=== PATIENT | male | born 1945 | race Caucasian/White ===

== ENCOUNTER 2017-08-25 18:40 | Inpatient (IN) | payer OTHER ==
[~2017-08-25] VITALS: Ht 182.9 cm; Wt 94.9 kg
[~2017-08-25 18:40] MED LIST: AMLO10TA3 PO; APR25 PO; ASPI81TA28 PO; ATV/1 PO; BRIM0.2S18 OPB; BUME1TAB PO; CARV25TA2 PO; CLC100X PO; CYAN1TAB4 PO; ETAN50IN2 SQ; FAMO40TA6 PO; FLV1 PO; GABA-1220 PO; LATA0.5S OPB; LEVO125T72 PO; METH25IN13 SQ; MORP60TA6 PO; MULTTAB PO; ONDA4TAB46 PO; PRS5 PO; [UNRECOGNIZED DRUG - CODE] PO; [UNRECOGNIZED DRUG - CODE] TD
[2017-08-25] MEDS ORDERED: SODIUM CHLORIDE 0.9% 500ML 500 ML IV STA (18:59)
--- NOTE | 2017-08-25 19:14 | EMERGENCY ROOM VISIT NOTE ---
History Report prepared by Jayson: Radha Lopez Under the Supervision of: Dr. Erwin Quiroz M.D. First contact with patient: 18:50 Chief Complaint: CONFUSION Stated Complaint: WEAKNESS, CONFUSION History of Present Illness The patient is a 72 year old white male with a past medical history of dementia who presents to the ED with a cc of worsening confusion beginning yesterday. Positive left sided weakness, confusion, decreased appetite. Negative headache, chest pain, shortness of breath, urinary symptoms. Per nursing, the patient's stated the patient has had decreased urinary output over the past couple days. The patient's is on her way to the ED. History limited secondary to dementia. Source of History: patient History Limited By: dementia Onset: two days Position: other (generalized) Associated Symptoms: + weakness, No headache, No chest pain, No SOB, No urinary symptoms Review of Systems ROS limited secondary to dementia. Past Medical & Surgical Medical Problems: (1) CVA (cerebral vascular accident) Surgical Problems: (1) H/O aortic valve replacement Family History No pertinent family history Social History Smoking Status: Never Smoker Marital Status: Housing Status: lives with family Current/Historical Medications Scheduled Amlodipine (Norvasc), 10 MG PO DAILY Artificial Tear Solution (Artificial Tears), 1 DROPS OP Q12 Calcipotriene (Calcipotriene), 1 APPLN TOP PRN Calcitriol (Rocaltrol Cap), 0.25 MCG PO MWF Calcium Carbonate-Vitamin D (Calcium 500 + D), 1 TAB PO BID Cholecalciferol (Vitamin D 1000 Unit), 2,000 INTER.UNIT PO DAILY Clobetasol Propionate (Clobetasol Propionate), 1 APPLN TOP PRN UD Donepezil Hydrochloride (Donepezil Hcl), 5 MG PO DAILY Famotidine (Pepcid), 40 MG PO BID Fluoxetine (Prozac), 20 MG PO DAILY Folic Acid (Folic Acid), 1 MG PO DAILY Hydralazine Hcl (Apresoline), 30 MG PO Q8 Levothyroxine Sodium (Levothyroxine Sodium), 1 TAB PO DAILY Lorazepam (Ativan), 0.5 MG PO HS Metformin Hcl (Glucophage), 500 MG PO DAILY Methotrexate Sodium (Methotrexate), 6 TABS PO WK Morphine Sulfate (Morphine Sulfate Cr), 60 MG PO HS Morphine Sulfate (Morphine Sulfate), 30 MG PO QAM Multivitamins/Minerals (Mvi With Minerals), 1 TAB PO DAILY Tamsulosin Hcl (Flomax), 0.8 MG PO HS Trazodone Hcl (Desyrel), 150 MG PO HS Venlafaxine Hcl (Effexor), 2 TABS QAM Venlafaxine Hcl (Effexor), 3 TABS PO QPM Scheduled PRN Fluocinonide (Fluocinonide), 1 APPLN TOP BID PRN for PSORIASIS Ipratropium [place] (Nasal) (Ipratropium [place]), 1 SPRAY JOHN BID PRN for Nasal Congestion Lidocaine (Anorectal) (Lidocaine 5%), 1 APPLN TOP Q6 PRN for Pain Allergies Coded Allergies: No Known Allergies (Unverified , 03/20/14) Physical Exam Vital Signs Date Time Temp Pulse Resp B/P (MAP) Pulse Ox O2 Delivery O2 Flow Rate FiO2 08/25/17 22:30 66 20 156/93 94 Room Air 08/25/17 21:43 Room Air 08/25/17 20:08 66 08/25/17 20:04 70 16 160/95 94 Room Air 08/25/17 19:05 Room Air 08/25/17 18:49 37.3 78 14 148/92 92 Room Air Physical Exam GENERAL: Awake, alert, well-appearing, NAD HENT: Normocephalic, atraumatic. EYES: Purulent drainage from left eye, b/l conjunctivas. Sclera non-icteric. PERRL. No anisocoria. NECK: Supple. No nuchal rigidity. FROM. RESPIRATORY: CTAB, no rhonchi, wheezing, crackles CARDIAC: RRR, no MRG ABDOMEN: Soft, NTND, BS+ MSK: No chest wall TTP, no LE edema NEURO: Poor finger to nose of left upper extremity, left upper extremity drift, 3/5 strength of left upper extremity. Right upper and both lower extremities are 5/5 in strength. GCS 15, CN 2-12 intact, moves all 4s on command SKIN: No rash or jaundice noted. Medical Decision & Procedures ER Provider Diagnostic Interpretation: Radiology results as stated below per my review and radiologist interpretation: CHEST ONE VIEW PORTABLE CLINICAL HISTORY: EVALUATE WEAKNESS mental status change COMPARISON STUDY: 03/20/2014 FINDINGS: Mild stable cardia megaly. Diaphragms smooth. IMPRESSION: No acute process. Chronic change. The above report was generated using voice recognition software. It may contain grammatical, syntax or spelling errors. Electronically signed by: Kris Yee M.D. HEAD WITHOUT CONTRAST (CT) CT DOSE: 712.55 mGy.cm HISTORY: Mental status change EVALUATE WEAKNESS TECHNIQUE: Multiaxial CT images of the head were performed without the use of intravenous contrast. A dose lowering technique was utilized adhering to the principles of ALARA. Comparison: None. Findings: The paranasal sinuses and mastoid air cells are clear. The calvarium and skull base are intact. The ventricles and sulci are within normal limits. There is no mass, hematoma, midline shift, or acute infarct. Considerable chronic small vessel change. Age-related atrophy. Impression: No acute intracranial abnormality. Age-related atrophy and chronic small vessel change The above report was generated using voice recognition software. It may contain grammatical, syntax or spelling errors. Electronically signed by: Kris Yee M.D. Laboratory Results 08/25/17 19:35 Red Blood Count 5.01, Mean Corpuscular Volume 82.4, Mean Corpuscular Hemoglobin 27.3, Mean Corpuscular Hemoglobin Concent 33.2, Mean Platelet Volume 9.3, Neutrophils (%) (Auto) 57.8, Lymphocytes (%) (Auto) 32.7, Monocytes (%) (Auto) 4.7, Eosinophils (%) (Auto) 3.7, Basophils (%) (Auto) 0.4, Neutrophils # (Auto) 5.59, Lymphocytes # (Auto) 3.17, Monocytes # (Auto) 0.46, Eosinophils # (Auto) 0.36, Basophils # (Auto) 0.04 08/25/17 19:35 Test 08/25/17 19:06 08/25/17 19:35 08/25/17 19:39 08/25/17 21:40 Bedside Glucose 104 mg/dl (70-99) White Blood Count 9.69 K/uL (4.8-10.8) Red Blood Count 5.01 M/uL (4.7-6.1) Hemoglobin 13.7 g/dL (14.0-18.0) Hematocrit 41.3 % (42-52) Mean Corpuscular Volume 82.4 fL (80-100) Mean Corpuscular Hemoglobin 27.3 pg (25-34) Mean Corpuscular Hemoglobin Concent 33.2 g/dl (32-36) Platelet Count 206 K/uL (130-400) Mean Platelet Volume 9.3 fL (7.4-10.4) Neutrophils (%) (Auto) 57.8 % Lymphocytes (%) (Auto) 32.7 % Monocytes (%) (Auto) 4.7 % Eosinophils (%) (Auto) 3.7 % Basophils (%) (Auto) 0.4 % Neutrophils # (Auto) 5.59 K/uL (1.4-6.5) Lymphocytes # (Auto) 3.17 K/uL (1.2-3.4) Monocytes # (Auto) 0.46 K/uL (0.11-0.59) Eosinophils # (Auto) 0.36 K/uL (0-0.5) Basophils # (Auto) 0.04 K/uL (0-0.2) RDW Standard Deviation 45.2 fL (36.4-46.3) RDW Coefficient of Variation 15.2 % (11.5-14.5) Immature Granulocyte % (Auto) 0.7 % Immature Granulocyte # (Auto) 0.07 K/uL (0.00-0.02) Prothrombin Time 10.7 SECONDS (9.0-12.0) Prothromb Time International Ratio 1.0 (0.9-1.1) Activated Partial Thromboplast Time 24.6 SECONDS (21.0-31.0) Partial Thromboplastin Ratio 0.9 Anion Gap 7.0 mmol/L (3-11) Est Creatinine Clear Calc Drug Dose 66.5 ml/min Estimated GFR () 66.4 Estimated GFR (Non- 57.3 BUN/Creatinine Ratio 8.8 (10-20) Calcium Level 8.1 mg/dl (8.5-10.1) Magnesium Level 2.0 mg/dl (1.8-2.4) Total Bilirubin 0.4 mg/dl (0.2-1) Direct Bilirubin 0.1 mg/dl (0-0.2) Aspartate Amino Transf (AST/SGOT) 27 U/L (15-37) Alanine Aminotransferase (ALT/SGPT) 32 U/L (12-78) Alkaline Phosphatase 75 U/L (45-117) Total Creatine Kinase 62 U/L (39-308) Troponin I < 0.015 ng/ml (0-0.045) Total Protein 6.9 gm/dl (6.4-8.2) Albumin 3.4 gm/dl (3.4-5.0) Lipase 37 U/L (73-393) Thyroid Stimulating Hormone (TSH) 0.637 uIu/ml (0.300-4.500) Hepatitis C Antibody Screen NEG (NEG) Urine Color YELLOW Urine Appearance CLEAR (CLEAR) Urine pH 6.5 (4.5-7.5) Urine Specific [place] 1.006 (1.000-1.030) Urine Protein NEG (NEG) Urine Glucose (UA) NEG (NEG) Urine Ketones NEG (NEG) Urine Occult Blood NEG (NEG) Urine Nitrite NEG (NEG) Urine Bilirubin NEG (NEG) Urine Urobilinogen NEG (NEG) Urine Leukocyte Esterase NEG (NEG) Laboratory results reviewed by me Medications Administered Medications (Trade) Dose Ordered Sig/Ibrahima Route Start Time Stop Time Status Last Admin Dose Admin Sodium Chloride 500 ml @ 999 mls/hr Q31M STAT IV 08/25/17 18:59 08/25/17 19:29 DC 08/25/17 20:14 999 MLS/HR Calcium Carbonate (Tums Chew Tab) 1,500 mg ONE STAT PO 08/25/17 20:51 08/25/17 20:52 DC 08/25/17 21:08 1,500 MG Aspirin (Aspirin Chew) 324 mg NOW STAT PO 08/25/17 20:51 08/25/17 20:52 DC 08/25/17 21:08 324 MG ECG Per My Interpretation Indication: weakness Rate (beats per minute): 73 Rhythm: other (sinus with first degree AV block) Findings: 1st degree AV block, left axis deviation, other (normal QRS duration , left axis deviation) ED Course 1853: The patient was evaluated in room A11B. A complete history and physical exam was performed. 2039: I updated the patient on his test results. He is agreeable to the treatment plan. 2048: Discussed the patient's case with Dr. Sales-[facility]. The patient will be evaluated for further treatment and disposition. Medical Decision Nursing notes reviewed. Ancillary studies and prior records reviewed. The patient is a 72 year old white male with a past medical history of dementia who presents to the ED with a cc of worsening confusion beginning yesterday. Differential diagnosis: Etiologies such as metabolic, infection, hypoglycemia, electrolyte abnormalities , cardiac sources, intracerebral event, toxicologic, neurologic, as well as others were entertained. Patient was seen and evaluated at the bedside. The patient is brought in by ambulance there was concern that the patient had been more confused than baseline. Patient does have a known history of dementia. Patient does have a known history of urinary incontinence. The patient's med list he does appear to have diabetes, hypertension, hyperlipidemia and dementia. The patient is a and O 3 with a GCS of 15. The patient's neuro exam is concerning for left upper extremity weakness as well as pronator drift and dysmetria. The patient has an unknown last known well time but reportedly this is been ongoing 2 days. Patient did have blood work completed along with a CT of the brain. Patient blood work is fairly unremarkable. Patient CT the brain is negative. Chest x-ray is clear. I did discuss the patient's left upper extremity weakness with the who had presented at the bedside. She did state that this was not chronic but new within the last 2 days. I discussed case with the on-call hospitalist. The patient was given full dose aspirin and a cath urine was ordered. Patient's calcium was repleted. Medication Reconcilliation Current Medication List: was personally reviewed by me Blood Pressure Screening Patient's blood pressure: Elevated blood pressure Blood pressure disposition: Referred to PCP (referred to hospitalist) Consults Time Called: 2038 Consulting Phys[facility] Returned Call: 2048 Discussed the patient's case [facility] The patient will be evaluated for further treatment and disposition. Impression Primary Impression: Left arm weakness Additional Impressions: Dementia Anemia Scribe Attestation The scribe's documentation has been prepared under my direction and personally reviewed by me in its entirety. I confirm that the note above accurately reflects all work, treatment, procedures, and medical decision making performed by me. Departure Information Dispostion Being Evaluated By Hospitalist Referrals Ngoc Nevarez M.D. (PCP) Patient Instructions My [facility] Problem Qualifiers Additional Impressions: Dementia Dementia type: unspecified type Dementia behavioral disturbance: without behavioral disturbance Qualified Codes: F03.90 - Unspecified dementia without behavioral disturbance Anemia Anemia type: unspecified type Qualified Codes: D64.9 - Anemia, unspecified
--- NOTE | 2017-08-25 19:32 | DIAGNOSTIC IMAGING REPORT ---
CHEST ONE VIEW PORTABLE CLINICAL HISTORY: EVALUATE WEAKNESS mental status change COMPARISON STUDY: 03/20/2014 FINDINGS: Mild stable cardia megaly. Diaphragms smooth. IMPRESSION: No acute process. Chronic change. The above report was generated using voice recognition software. It may contain grammatical, syntax or spelling errors. Electronically signed by: Kris Yee M.D. 08/25/2017 7:30 PM Dictated Date/Time: 08/25/2017 7:30 PM
[2017-08-25 19:53] LABS: BASO % 0.4 %; BASO ABS # 0.04 K/uL (0-0.2); EOS % 3.7 %; EOS ABS # 0.36 K/uL (0-0.5); HEMATOCRIT 41.3 % (42-52); HEMOGLOBIN 13.7 g/dL (14.0-18.0); IG# 0.07 K/uL (0.00-0.02); LYMPH % 32.7 %; LYMPH ABS # 3.17 K/uL (1.2-3.4); MEAN CELL VOLUME 82.4 fL (80-100); MEAN CORPUSCULAR HEMOGLOBIN 27.3 pg (25-34); MEAN CORPUSCULAR HGB CONC 33.2 g/dl (32-36); MEAN PLATELET VOLUME 9.3 fL (7.4-10.4); MONO % 4.7 %; MONO ABS # 0.46 K/uL (0.11-0.59); NEUT % 57.8 %; NEUT ABS # 5.59 K/uL (1.4-6.5); PLATELET COUNT 206 K/uL (130-400); RED CELL DISTRIBUTION WIDTH CV 15.2 % (11.5-14.5); RED CELL DISTRIBUTION WIDTH SD 45.2 fL (36.4-46.3); WHITE BLOOD COUNT 9.69 K/uL (4.8-10.8)
--- NOTE | 2017-08-25 20:04 | DIAGNOSTIC IMAGING REPORT ---
HEAD WITHOUT CONTRAST (CT) CT DOSE: 712.55 mGy.cm HISTORY: Mental status change EVALUATE WEAKNESS TECHNIQUE: Multiaxial CT images of the head were performed without the use of intravenous contrast. A dose lowering technique was utilized adhering to the principles of ALARA. Comparison: None. Findings: The paranasal sinuses and mastoid air cells are clear. The calvarium and skull base are intact. The ventricles and sulci are within normal limits. There is no mass, hematoma, midline shift, or acute infarct. Considerable chronic small vessel change. Age-related atrophy. Impression: No acute intracranial abnormality. Age-related atrophy and chronic small vessel change The above report was generated using voice recognition software. It may contain grammatical, syntax or spelling errors. Electronically signed by: Kris Yee M.D. 08/25/2017 8:03 PM Dictated Date/Time: 08/25/2017 8:01 PM
[2017-08-25 20:08] LABS: PTT PATIENT 24.6 SECONDS (21.0-31.0)
[2017-08-25 20:29] LABS: ALBUMIN 3.4 gm/dl (3.4-5.0); ALKALINE PHOSPHATASE 75 U/L (45-117); ALT/SGPT 32 U/L (12-78); AST/SGOT 27 U/L (15-37); BLOOD UREA NITROGEN 11 mg/dl (7-18); CALCIUM 8.1 mg/dl (8.5-10.1); CARBON DIOXIDE 26 mmol/L (21-32); CREATININE 1.24 mg/dl (0.60-1.40); GLUCOSE 102 mg/dl (70-99); LIPASE 37 U/L (73-393); POTASSIUM 4.3 mmol/L (3.5-5.1); SODIUM 137 mmol/L (136-145); TOTAL PROTEIN 6.9 gm/dl (6.4-8.2)
[2017-08-25] MEDS ORDERED: ARTISOL12 OP (20:40)
[2017-08-25] MEDS ORDERED: LEVO150T9 PO (20:40)
[2017-08-25] MEDS ORDERED: LIDO5CRE13 TOP (20:40)
[2017-08-25] MEDS ORDERED: FLUO0.0566 TOP (20:40)
[2017-08-25] MEDS ORDERED: IPRA0.03 NAE (20:40)
[2017-08-25] MEDS ORDERED: GLC/500 PO (20:40)
[2017-08-25] MEDS ORDERED: CALC1CRE2 TOP (20:40)
[2017-08-25] MEDS ORDERED: CALCTAB65 PO (20:40)
[2017-08-25] MEDS ORDERED: LORA-741 PO (20:40)
[2017-08-25] MEDS ORDERED: CALC0.2510 PO (20:40)
[2017-08-25] MEDS ORDERED: DONE5TAB26 PO (20:40)
[2017-08-25] MEDS ORDERED: FLUO20CA35 PO (20:40)
[2017-08-25] MEDS ORDERED: CHOL100027 PO (20:40)
[2017-08-25] MEDS ORDERED: CLBPO15 TOP (20:40)
[2017-08-25] MEDS ORDERED: CALCIUM CARBONATE 500 MG CHEWABLE PO STA (20:51)
[2017-08-25] MEDS ORDERED: ASPIRIN 324 MG CHEW PO STA (20:51)
[2017-08-25] MEDS ORDERED: TAMS0.4C38 PO (20:52)
[2017-08-25] MEDS ORDERED: EFF/375 PO (20:52)
[2017-08-25] MEDS ORDERED: MORP-88 PO (20:52)
[2017-08-25] MEDS ORDERED: METH2.5T PO (20:52)
[2017-08-25] MEDS ORDERED: TRAZ1TAB52 PO (20:52)
[2017-08-25] MEDS ORDERED: [UNRECOGNIZED DRUG - CODE] PO (20:52)
[2017-08-25] MEDS ORDERED: EFF/375 (20:52)
[2017-08-25] MEDS ORDERED: HYDR-4715 PO (21:02)
[2017-08-25 21:43] VITALS: BMI 31.4
[2017-08-25] MEDS ORDERED: ACETAMINOPHEN 325 MG TAB PO PRN (22:45)
[2017-08-25] MEDS ORDERED: ONDANSETRON INJ 2 MG/ML 2 ML VIAL IV PRN (22:45)
[2017-08-25] MEDS ORDERED: PHARMACIST DISCHARGE MED REC CONSULT PRN (22:45)
[2017-08-25] MEDS: ARTIFICIAL TEARS OP SOLN OP SCH (23:00)
[2017-08-25 23:59] VITALS: BP 155/83; PULSE 73; TEMP 36.7; O2SAT 94
[2017-08-26] VITALS (9 sets, daily range): BP systolic 160–187; BP diastolic 81–98; PULSE 65–89; TEMP 36.6–37.1; O2SAT 95–99
[2017-08-26] MEDS ORDERED: GLUCAGON FOR INJ 1 MG VIAL SQ PRN (00:15)
[2017-08-26] MEDS ORDERED: GLUCOSE 10 TABS/TUBE PO PRN (00:15)
[2017-08-26] MEDS ORDERED: DEXTROSE 50% 50 ML SYR IV PRN (00:15)
[2017-08-26] MEDS ORDERED: DC ALL PREVIOUSLY ORDERED DIABETES MEDS ONE (00:15)
[2017-08-26] MEDS ORDERED: CARBOHYDRATES FOR HYPOGLYCEMIA PO PRN (00:15)
[2017-08-26] MEDS ORDERED: GLUCOSE 40% GEL 15 GM TUBE PO PRN (00:15)
--- NOTE | 2017-08-26 00:24 | History and Physical ---
History & Physical Date & Time of Service: Aug 25, 2017 at 23:47 Chief Complaint: Cva (Cerebral Vascular Accident) Primary Care Physician: Ngoc Nevarez M.D. History of Present Illness Source: patient, spouse 72yo C male with multiple medical problems, notably aortic stenosis s/p bioprosthetic valve replacement in 2012, TIA, HTN, recently diagnosed DM presenting with stoke-like symptoms. Majority of history is obtained from patient's /caregiver as patient with dementia. Yesterday AM around 0900 patient began experiencing left arm weakness and clumsiness, difficulty standing and falling backward while sitting on the bed. also reports difficulty with ambulation and some mild confusion. Symptoms have persisted. No facial droop/slurred speech, no weakness of the leg appreciated. No additional complaints at this time. Patient has a poor functional status at baseline. reports patient requires assistance with ADLs, hygiene and feeding. She provides the majority of care at home. Patient ambulates with a cane and occasionally a walker. reports progressive decline in functional status over the last few months ER Course: Calcium carbonate ASA 324mg Past Medical/Surgical History Medical Problems: Aortic stenosis s/p bioprosthetic valve replacement 2012 Hypothyroidism TIA CKD stage III HTN GERD COPD BPH DM Dementia Psoriasis with psoriatic arthritis Depression Surgical Problems: (1) H/O aortic valve replacement Thyroidectomy Carol fundoplication Cholecystectomy Hernia Family History No pertinent family history Diabetes Social History Smoking Status: Never Smoker Smokeless Tobacco Use: No Drug Use: none Marital Status: Housing status: lives with family Allergies Coded Allergies: No Known Allergies (Unverified , 03/20/14) Home Medications Scheduled Amlodipine (Norvasc), 10 MG PO DAILY Artificial Tear Solution (Artificial Tears), 1 DROPS OP Q12 Calcipotriene (Calcipotriene), 1 APPLN TOP PRN Calcitriol (Rocaltrol Cap), 0.25 MCG PO MWF Calcium Carbonate-Vitamin D (Calcium 500 + D), 1 TAB PO BID Cholecalciferol (Vitamin D 1000 Unit), 2,000 INTER.UNIT PO DAILY Clobetasol Propionate (Clobetasol Propionate), 1 APPLN TOP PRN UD Donepezil Hydrochloride (Donepezil Hcl), 5 MG PO DAILY Famotidine (Pepcid), 40 MG PO BID Fluoxetine (Prozac), 20 MG PO DAILY Folic Acid (Folic Acid), 1 MG PO DAILY Hydralazine Hcl (Apresoline), 30 MG PO Q8 Levothyroxine Sodium (Levothyroxine Sodium), 1 TAB PO DAILY Lorazepam (Ativan), 0.5 MG PO HS Metformin Hcl (Glucophage), 500 MG PO DAILY Methotrexate Sodium (Methotrexate), 6 TABS PO WK Morphine Sulfate (Morphine Sulfate Cr), 60 MG PO HS Morphine Sulfate (Morphine Sulfate), 30 MG PO QAM Multivitamins/Minerals (Mvi With Minerals), 1 TAB PO DAILY Tamsulosin Hcl (Flomax), 0.8 MG PO HS Trazodone Hcl (Desyrel), 150 MG PO HS Venlafaxine Hcl (Effexor), 2 TABS QAM Venlafaxine Hcl (Effexor), 3 TABS PO QPM Scheduled PRN Fluocinonide (Fluocinonide), 1 APPLN TOP BID PRN for PSORIASIS Ipratropium [place] (Nasal) (Ipratropium [place]), 1 SPRAY [place] BID PRN for Nasal Congestion Lidocaine (Anorectal) (Lidocaine 5%), 1 APPLN TOP Q6 PRN for Pain Review of Systems Constitutional: No fever, No chills, No sweats Eyes: No worsening of vision, No diplopia ENT: + trouble swallowing (occasionally food gets stuck), No hearing loss, No sore throat Respiratory: No cough, No shortness of breath, No dyspnea on exertion, No dyspnea at rest Cardiovascular: No chest pain, No edema, No palpitations Abdomen: + constipation, No pain, No nausea, No vomiting, No diarrhea Musculoskeletal: No joint pain Genitourinary - Male: No hematuria Neurologic: + memory loss, + weakness, + numbness/tingling, + balance problems Endocrine: No fatigue Hematologic / Lymphatic: No abnormal bleeding/bruising Integumentary: No rash Physical Exam Vital Signs Date Time Temp Pulse Resp B/P (MAP) Pulse Ox O2 Delivery O2 Flow Rate FiO2 08/25/17 23:14 69 18 164/89 93 08/25/17 22:30 66 20 156/93 94 Room Air 08/25/17 21:43 Room Air 08/25/17 20:08 66 08/25/17 20:04 70 16 160/95 94 Room Air 08/25/17 19:05 Room Air 08/25/17 18:49 37.3 78 14 148/92 92 Room Air General: patient resting comfortably in bed, NAD, AA&O to self and location Skin: warm, dry, intact, no rashes or lesions HEENT: NC/AT, PERRL, EOMI, anicteric sclera, injected conjunctiva left eye, nares patent, moist mucus membranes, no oropharyngeal lesions, neck supple, trachea midline, no thyromegaly, no LAD, no carotid bruits Heart: +S1/S2, regular, 3/6 DEYVI at 2nd right ICS Lungs: equal air entry bilaterally, no rales/rhonchi/wheezes Abdomen: soft, NT/ND, no masses/organomegaly/ascites Extremities: warm, well perfused, no clubbing/cyanosis or edema, 2+ palpable pulses in UE/LE bilaterally Neuro: AA&O to person, place only. CN II-XII grossly intact with exception of diminished strength in left shoulder shrug and SCM, Sensation equal bilateral UE /LE, diminished in bilateral LE at baseline secondary to neuropathy, MS 3/5 LUE with +Pronator drift, MS 5/5 in RUE, 5/5 in bilateral LEs, poor coordination of left hand with finger to nose testing, gait not assessed Diagnostics Laboratory Results Results Past 24 Hours Test 08/25/17 19:06 08/25/17 19:35 08/25/17 19:39 08/25/17 21:40 Range/Units Bedside Glucose 104 70-99 mg/dl White Blood Count 9.69 4.8-10.8 K/uL Red Blood Count 5.01 4.7-6.1 M/uL Hemoglobin 13.7 14.0-18.0 g/dL Hematocrit 41.3 42-52 % Mean Corpuscular Volume 82.4 80-100 fL Mean Corpuscular Hemoglobin 27.3 25-34 pg Mean Corpuscular Hemoglobin Concent 33.2 32-36 g/dl Platelet Count 206 130-400 K/uL Mean Platelet Volume 9.3 7.4-10.4 fL Neutrophils (%) (Auto) 57.8 % Lymphocytes (%) (Auto) 32.7 % Monocytes (%) (Auto) 4.7 % Eosinophils (%) (Auto) 3.7 % Basophils (%) (Auto) 0.4 % Neutrophils # (Auto) 5.59 1.4-6.5 K/uL Lymphocytes # (Auto) 3.17 1.2-3.4 K/uL Monocytes # (Auto) 0.46 0.11-0.59 K/uL Eosinophils # (Auto) 0.36 0-0.5 K/uL Basophils # (Auto) 0.04 0-0.2 K/uL RDW Standard Deviation 45.2 36.4-46.3 fL RDW Coefficient of Variation 15.2 11.5-14.5 % Immature Granulocyte % (Auto) 0.7 % Immature Granulocyte # (Auto) 0.07 0.00-0.02 K/uL Prothrombin Time 10.7 9.0-12.0 SECONDS Prothromb Time International Ratio 1.0 0.9-1.1 Activated Partial Thromboplast Time 24.6 21.0-31.0 SECONDS Partial Thromboplastin Ratio 0.9 Sodium Level 137 136-145 mmol/L Potassium Level 4.3 3.5-5.1 mmol/L Chloride Level 104 98-107 mmol/L Carbon Dioxide Level 26 21-32 mmol/L Anion Gap 7.0 3-11 mmol/L Blood Urea Nitrogen 11 7-18 mg/dl Creatinine 1.24 0.60-1.40 mg/dl Est Creatinine Clear Calc Drug Dose 66.5 ml/min Estimated GFR () 66.4 Estimated GFR (Non- 57.3 BUN/Creatinine Ratio 8.8 10-20 Random Glucose 102 70-99 mg/dl Calcium Level 8.1 8.5-10.1 mg/dl Magnesium Level 2.0 1.8-2.4 mg/dl Total Bilirubin 0.4 0.2-1 mg/dl Direct Bilirubin 0.1 0-0.2 mg/dl Aspartate Amino Transf (AST/SGOT) 27 15-37 U/L Alanine Aminotransferase (ALT/SGPT) 32 12-78 U/L Alkaline Phosphatase 75 45-117 U/L Total Creatine Kinase 62 39-308 U/L Troponin I < 0.015 0-0.045 ng/ml Total Protein 6.9 6.4-8.2 gm/dl Albumin 3.4 3.4-5.0 gm/dl Lipase 37 73-393 U/L Thyroid Stimulating Hormone (TSH) 0.637 0.300-4.500 uIu/ml Hepatitis C Antibody Screen NEG NEG Urine Color YELLOW Urine Appearance CLEAR CLEAR Urine pH 6.5 4.5-7.5 Urine Specific [place] 1.006 1.000-1.030 Urine Protein NEG NEG Urine Glucose (UA) NEG NEG Urine Ketones NEG NEG Urine Occult Blood NEG NEG Urine Nitrite NEG NEG Urine Bilirubin NEG NEG Urine Urobilinogen NEG NEG Urine Leukocyte Esterase NEG NEG Microbiology Results 08/25/17 Urine Culture, Received Pending Diagnostic Radiology CHEST ONE VIEW PORTABLE CLINICAL HISTORY: EVALUATE WEAKNESS mental status change COMPARISON STUDY: 03/20/2014 FINDINGS: Mild stable cardia megaly. Diaphragms smooth. IMPRESSION: No acute process. Chronic change. The above report was generated using voice recognition software. It may contain grammatical, syntax or spelling errors. HEAD WITHOUT CONTRAST (CT) CT DOSE: 712.55 mGy.cm HISTORY: Mental status change EVALUATE WEAKNESS TECHNIQUE: Multiaxial CT images of the head were performed without the use of intravenous contrast. A dose lowering technique was utilized adhering to the principles of ALARA. Comparison: None. Findings: The paranasal sinuses and mastoid air cells are clear. The calvarium and skull base are intact. The ventricles and sulci are within normal limits. There is no mass, hematoma, midline shift, or acute infarct. Considerable chronic small vessel change. Age-related atrophy. Impression: No acute intracranial abnormality. Age-related atrophy and chronic small vessel change The above report was generated using voice recognition software. It may contain grammatical, syntax or spelling errors. EKG Sinus rhythm with Premature atrial complexes Left anterior fascicular block Minimal voltage criteria for LVH, may be normal variant Possible Anterior infarct Impression Assessment and Plan 72yo C male presenting with concern for CVA 1. Possible CVA - patient with prior TIA, +weakness of LUE, +pronator drift, + poor coordination. Patient with poor functional baseline secondary to dementia. CT head with age related changes, no acute intracranial process. Symptoms began appx 39 hours ago, patient is not a candidate for tPA -Admit to telemetry -MRI brain (image orbits first as patient with history of metal in eye) -Neurology consultation - appreciate assistance with this case -Check A1C -ASA 81mg po daily -Lipitor 40mg po daily 2. HTN - patient mildly hypertensive at present. -Continue to monitor -Continue Amlodipine 10mg po daily -Continue Hydralazine 30mg po q 8 3. DM - patient recently diagnosed with DM. Blood sugar 102 today -Check A1c -Continue to monitor -ISS 4. CKD Stage III - Cr near baseline -Continue to monitor 5. Depression - stable, chronic -Continue Effexor and Prozac at home doses -Continue Trazodone qHS -Continue Ativan PRN anxiety 6. BPH - stable, chronic -Continue Flomax 7. Dementia - progressive decline in functional status. -Continue Aricept -PT/OT and discharge planning consultation for possible home services 8. Psoriatic Arthritis - stable, chronic -Continue MTX and Folic acid at home doses 9. Chronic pain - stable, chronic -Continue Morphine at home dose 10. s/p aortic valve replacement - stable, chronic -Continue to montior 11. COPD - stable, chronic -Continue to monitor 12. F/E/N - Heplock. Monitor electrolytes and replete as needed. Swallow eval , AHA diet as tolerated 13. Ppx - Lovenox for DVT prophylaxis 14. Code - Full per discussion with patient 15. Dispo - admit to telemetry Advanced Directives Existing Living Will: No Existing Power of Freedom Of Information Officer: Yes Resuscitation Status full VTE Prophylaxis Will order VTE Prophylaxis: Yes
[2017-08-26] MEDS: LEVOTHYROXINE 150 MCG TAB PO SCH (05:56)
[2017-08-26 06:30] LABS: BASO % 0.4 %; BASO ABS # 0.04 K/uL (0-0.2); EOS % 4.3 %; EOS ABS # 0.43 K/uL (0-0.5); HEMATOCRIT 42.1 % (42-52); HEMOGLOBIN 13.7 g/dL (14.0-18.0); IG# 0.08 K/uL (0.00-0.02); LYMPH % 37.8 %; LYMPH ABS # 3.75 K/uL (1.2-3.4); MEAN CELL VOLUME 82.9 fL (80-100); MEAN CORPUSCULAR HGB CONC 32.5 g/dl (32-36); MEAN PLATELET VOLUME 9.3 fL (7.4-10.4); MONO % 5.6 %; MONO ABS # 0.56 K/uL (0.11-0.59); NEUT % 51.1 %; NEUT ABS # 5.07 K/uL (1.4-6.5); PLATELET COUNT 213 K/uL (130-400); WHITE BLOOD COUNT 9.93 K/uL (4.8-10.8)
[2017-08-26 06:52] LABS: HEMOGLOBIN A1C 6.5 % (4.5-5.6)
[2017-08-26 06:56] LABS: CALCIUM 8.7 mg/dl (8.5-10.1); CREATININE 1.29 mg/dl (0.60-1.40); POTASSIUM 4.4 mmol/L (3.5-5.1)
[2017-08-26] MEDS: ASPIRIN 81 MG ECTAB PO SCH (07:38)
[2017-08-26] MEDS: CALCIUM 600MG + VIT D 400 IU TAB PO SCH ×2 (07:38→20:34)
[2017-08-26] MEDS: ATORVASTATIN 40 MG TAB PO SCH (07:39)
[2017-08-26] MEDS: DONEPEZIL HCL 5 MG TAB PO SCH (07:39)
[2017-08-26] MEDS: CHOLECALCIFEROL 1000 INTER.UNIT TAB PO SCH (07:39)
[2017-08-26] MEDS: FAMOTIDINE 20 MG TAB PO SCH ×2 (07:40→20:34)
[2017-08-26] MEDS: FLUOXETINE HCL 20 MG CAP PO SCH (07:40)
[2017-08-26] MEDS: CEROVITE ADV FORMULA TAB PO SCH (07:40)
[2017-08-26] MEDS: AMLODIPINE BESYLATE 5 MG TAB PO SCH (07:40)
[2017-08-26] MEDS: INSULIN ASPART 100 UNITS/ML 3 ML PEN SC SCH ×3 (07:45→16:15)
[2017-08-26] MEDS: ARTIFICIAL TEARS OP SOLN OP SCH ×2 (07:45→20:34)
[2017-08-26] MEDS ORDERED: LISINOPRIL 5 MG TAB PO SCH (10:00)
--- NOTE | 2017-08-26 10:02 | DIAGNOSTIC IMAGING REPORT ---
ORBIT RADIOGRAPHS 3 VIEWS HISTORY: pre-MRI screening. COMPARISON: None. FINDINGS: There are no radiopaque foreign bodies identified within the orbits. IMPRESSION: No radiopaque foreign bodies identified within the orbits. Electronically signed by: Ilya Gutierrez M.D. 08/26/2017 10:01 AM Dictated Date/Time: 08/26/2017 10:00 AM
--- NOTE | 2017-08-26 10:15 | Neurology Consultation ---
Neurology Consultation Date of Consultation: Aug 26, 2017. Attending Physician: Rodney Hernandes MD, PhD Primary Care Physician: Ngoc Nevarez M.D. Reason for Consultation: Stroke History of Present Illness Source: patient, hospital records Patient is a 72-year-old male who presented with confusion and left-sided weakness that began 2 mornings ago. He has a history of dementia and appears to be an unreliable historian. He is not really aware of any particular symptoms at this time. Left upper extremity weakness was noted in the emergency department. He continues to exhibit some left upper extremity weakness and neglect at this time. Again, he is not really aware of any particular problem or symptom. In addition to dementia, this patient has a history of aortic valve replacement, hypertension, and diabetes mellitus. A CT of the head completed in the emergency department revealed atrophy and chronic small vessel disease. I reviewed the images as well as the radiologist' s interpretation of this test. Per my review there is evidence of chronic bilateral cerebellar infarcts as well as a chronic right frontal infarct in addition to the above-noted chronic small vessel ischemic disease. No prior studies done at our institution for comparison. A serum glucose was 102. Electrocardiogram revealed 1st degree AV block with a heart rate of 73 beats per minute. The patient was admitted for further evaluation and management and started on daily low-dose aspirin and Lipitor. Past Medical/Surgical History Medical Problems: (1) Left arm weakness Status: Acute Family History Noncontributory Social History Smokeless Tobacco Use: No Drug Use: none Marital Status: Housing Status: lives with family Allergies Coded Allergies: No Known Allergies (Unverified , 03/20/14) Current Inpatient Medications Current Inpatient Medications Medications (Trade) Dose Ordered Sig/Ibrahima Route Start Time Stop Time Status Last Admin Dose Admin Miscellaneous Information (Pharmacist Discharge Med Rec Consult) 1 ea UD PRN N/A 08/25/17 22:45 09/24/17 22:44 Enoxaparin Sodium (Lovenox Inj) 40 mg Q24H SC 08/26/17 08:00 09/25/17 07:59 Acetaminophen (Tylenol Tab) 650 mg Q4H PRN PO 08/25/17 22:45 09/24/17 22:44 Ondansetron HCl (Zofran Inj) 4 mg Q6H PRN IV 08/25/17 22:45 09/24/17 22:44 Amlodipine Besylate (Norvasc Tab) 10 mg DAILY PO 08/26/17 09:00 09/25/17 08:59 08/26/17 07:40 10 MG Calcitriol (Rocaltrol Cap) 0.25 mcg MoWeFr@0900 PO 08/27/17 09:00 09/26/17 08:59 Cholecalciferol (Vitamin D Tab) 2,000 inter.unit DAILY PO 08/26/17 09:00 09/25/17 08:59 08/26/17 07:39 2,000 INTER.UNIT Donepezil HCl (Aricept Tab) 5 mg DAILY PO 08/26/17 09:00 09/25/17 08:59 08/26/17 07:39 5 MG Famotidine (Pepcid Tab) 40 mg BID PO 08/26/17 09:00 09/25/17 08:59 08/26/17 07:40 40 MG Fluoxetine HCl (Prozac Cap) 20 mg DAILY PO 08/26/17 09:00 09/25/17 08:59 08/26/17 07:40 20 MG Folic Acid (Folvite Tab) 1 mg DAILY PO 08/26/17 09:00 09/25/17 08:59 08/26/17 07:39 1 MG Hydralazine HCl (Apresoline Tab) 30 mg Q8 PO 08/26/17 14:00 09/25/17 13:59 Levothyroxine Sodium (Synthroid Tab) 150 mcg DAILYBB PO 08/26/17 06:00 09/25/17 05:59 08/26/17 05:56 150 MCG Lorazepam (Ativan Tab) 0.5 mg HS PO 08/26/17 21:00 09/25/17 20:59 Methotrexate (Methotrexate Tab) 15 mg Sa@0900 PO 08/28/17 09:00 09/27/17 08:59 Morphine Sulfate (Ms Contin Tab) 60 mg HS PO 08/26/17 21:00 09/09/17 20:59 Multivitamins/ Minerals (Multivitamin W/ Minerals Tab) 1 tab DAILY PO 08/26/17 09:00 09/25/17 08:59 08/26/17 07:40 1 TAB Tamsulosin HCl (Flomax Cap) 0.8 mg HS PO 08/26/17 21:00 09/25/17 20:59 Trazodone HCl (Desyrel Tab) 150 mg HS PO 08/26/17 21:00 09/25/17 20:59 Venlafaxine HCl (effeXOR TAB) 75 mg QAM PO 08/26/17 10:00 09/25/17 09:59 Venlafaxine HCl (effeXOR TAB) 112.5 mg QPM PO 08/26/17 21:00 09/25/17 20:59 Artificial Tears (Artificial Tears) 1 drops Q12 OP 08/25/17 23:00 09/24/17 22:59 Miscellaneous Information (Order Awaiting Action) 1 ea QS N/A 08/26/17 16:00 09/25/17 15:59 Calcium/Vitamin D (Caltrate Plus Tab) 1 tab BID PO 08/26/17 09:00 09/25/17 08:59 08/26/17 07:38 1 TAB Miscellaneous Information (Order Awaiting Action) 1 ea QS N/A 08/26/17 16:00 09/25/17 15:59 Miscellaneous Information (Order Awaiting Action) 1 ea QS N/A 08/26/17 16:00 09/25/17 15:59 Miscellaneous Information (Order Awaiting Action) 1 ea QS N/A 08/26/17 16:00 09/25/17 15:59 Miscellaneous Information (Order Awaiting Action) 1 ea QS N/A 08/26/17 16:00 09/25/17 15:59 Morphine Sulfate (Oramorph Sr Tab) 30 mg QAM PO 08/26/17 09:30 09/09/17 09:29 Aspirin (Ecotrin Tab) 81 mg QAM PO 08/26/17 09:00 09/25/17 08:59 08/26/17 07:38 81 MG Atorvastatin Calcium (Lipitor Tab) 40 mg QAM PO 08/26/17 09:00 09/25/17 08:59 08/26/17 07:39 40 MG Insulin Aspart (novoLOG ASPART) SLIDING SCALE If C... ACHS SC 08/26/17 07:00 09/25/17 06:59 08/26/17 07:45 4 UNITS Glucose (Glucose 40% Gel) 15-30 GRAMS 15 GRAMS... UD PRN PO 08/26/17 00:15 09/25/17 00:14 Glucose (Glucose Chew Tab) 4-8 Tablets 4 Tabl... UD PRN PO 08/26/17 00:15 09/25/17 00:14 Dextrose (Dextrose 50% 50ML Syringe) 25-50ML 25ML FOR ... UD PRN IV 08/26/17 00:15 09/25/17 00:14 Glucagon (Glucagon Inj) 1 mg UD PRN SQ 08/26/17 00:15 09/25/17 00:14 Carbohydrates (Carbohydrates For Hypoglycemia) 15-30 GRAMS 15 grams if BSG 54-69... UD PRN PO 08/26/17 00:15 09/25/17 00:14 Lisinopril (Zestril Tab) 5 mg QAM PO 08/26/17 10:00 09/25/17 09:59 Review of Systems Constitutional: No fever chills Eyes: No vision loss or diplopia ENT: No vertigo or hearing loss Cardiovascular: No chest pain or palpitations Respiratory: No cough or shortness of breath Gastrointestinal: No diarrhea or vomiting Neurological: As per history of present illness Hematologic: No abnormal bleeding or swollen glands A full 10 point review of systems was obtained from this patient with pertinent positives and negatives described in history of present illness and otherwise listed above. All remaining systems were reviewed and are negative. Physical Exam Vital Signs (Past 24 Hrs): Date Time Temp Pulse Resp B/P (MAP) Pulse Ox O2 Delivery O2 Flow Rate FiO2 08/26/17 07:06 36.6 69 16 173/82 (112) 99 Room Air 08/26/17 04:00 95 Room Air 08/26/17 02:54 36.8 65 17 163/89 (113) 95 Room Air 08/25/17 23:59 36.7 73 17 155/83 (107) 94 Room Air 08/25/17 23:14 69 18 164/89 93 08/25/17 22:30 66 20 156/93 94 Room Air 08/25/17 21:43 Room Air 08/25/17 20:08 66 08/25/17 20:04 70 16 160/95 94 Room Air 08/25/17 19:05 Room Air 08/25/17 18:49 37.3 78 14 148/92 92 Room Air The patient is a well-developed elderly male. He is alert and oriented to person and hospital only. Recent memory is impaired, 1/3 objects with delayed recall. Remote memory intact. Attention is intact. Concentration impaired. Unable to spell world backwards correctly. Patient exhibits a normal vocabulary. Visual rehman full to confrontation. Visual acuity normal. Pupils equal round react to light and accommodation. Eye movements normal. Facial sensation intact. There is no facial droop or weakness. Hearing intact bilaterally. Palate elevates to midline. Shoulder shrug intact. Tongue protrudes to midline. Sensation intact to all modalities in all 4 limbs. Deep tendon reflexes are intact and symmetrical for the arms and legs. Left plantar response equivocal, right plantar response downgoing. Patient exhibits mild to moderate dysmetria with finger to nose on the left. No dysmetria with finger-to -nose on the right or heel to costa bilaterally. Ophthalmoscopic examination reveals normal-appearing optic discs and posterior segments. No papilledema or hemorrhages. Carotid pulses normal bilaterally, no bruits to auscultation. Gait and station not tested due to safety concerns. Patient exhibits mild weakness for the left upper extremity, 4/5. Normal strength for the remaining limbs. Muscle tone normal throughout. No atrophy. No abnormal movements observed. Also noted is a left upper extremity outward drift. Patient also extinguishes to double simultaneous stimulation for the left upper limb. He appears to have a mild element of left abebe neglect. Laboratory Results Past 24 Hours: 08/26/17 05:37 Red Blood Count 5.08, Mean Corpuscular Volume 82.9, Mean Corpuscular Hemoglobin 27.0, Mean Corpuscular Hemoglobin Concent 32.5, Mean Platelet Volume 9.3, Neutrophils (%) (Auto) 51.1, Lymphocytes (%) (Auto) 37.8, Monocytes (%) (Auto) 5.6, Eosinophils (%) (Auto) 4.3, Basophils (%) (Auto) 0.4, Neutrophils # (Auto) 5.07, Lymphocytes # (Auto) 3.75, Monocytes # (Auto) 0.56, Eosinophils # (Auto) 0.43, Basophils # (Auto) 0.04 08/26/17 05:37 Test 08/25/17 19:35 08/25/17 19:39 08/25/17 21:40 08/26/17 05:37 Prothrombin Time 10.7 SECONDS (9.0-12.0) Prothromb Time International Ratio 1.0 (0.9-1.1) Activated Partial Thromboplast Time 24.6 SECONDS (21.0-31.0) Partial Thromboplastin Ratio 0.9 Estimated Average Glucose 140 mg/dl Hemoglobin A1c 6.5 % (4.5-5.6) Magnesium Level 2.0 mg/dl (1.8-2.4) Total Bilirubin 0.4 mg/dl (0.2-1) Direct Bilirubin 0.1 mg/dl (0-0.2) Aspartate Amino Transf (AST/SGOT) 27 U/L (15-37) Alanine Aminotransferase (ALT/SGPT) 32 U/L (12-78) Alkaline Phosphatase 75 U/L (45-117) Total Creatine Kinase 62 U/L (39-308) Troponin I < 0.015 ng/ml (0-0.045) Total Protein 6.9 gm/dl (6.4-8.2) Albumin 3.4 gm/dl (3.4-5.0) Lipase 37 U/L (73-393) Thyroid Stimulating Hormone (TSH) 0.637 uIu/ml (0.300-4.500) Hepatitis C Antibody Screen NEG (NEG) Urine Color YELLOW Urine Appearance CLEAR (CLEAR) Urine pH 6.5 (4.5-7.5) Urine Specific [place] 1.006 (1.000-1.030) Urine Protein NEG (NEG) Urine Glucose (UA) NEG (NEG) Urine Ketones NEG (NEG) Urine Occult Blood NEG (NEG) Urine Nitrite NEG (NEG) Urine Bilirubin NEG (NEG) Urine Urobilinogen NEG (NEG) Urine Leukocyte Esterase NEG (NEG) White Blood Count 9.93 K/uL (4.8-10.8) Red Blood Count 5.08 M/uL (4.7-6.1) Hemoglobin 13.7 g/dL (14.0-18.0) Hematocrit 42.1 % (42-52) Mean Corpuscular Volume 82.9 fL (80-100) Mean Corpuscular Hemoglobin 27.0 pg (25-34) Mean Corpuscular Hemoglobin Concent 32.5 g/dl (32-36) Platelet Count 213 K/uL (130-400) Mean Platelet Volume 9.3 fL (7.4-10.4) Neutrophils (%) (Auto) 51.1 % Lymphocytes (%) (Auto) 37.8 % Monocytes (%) (Auto) 5.6 % Eosinophils (%) (Auto) 4.3 % Basophils (%) (Auto) 0.4 % Neutrophils # (Auto) 5.07 K/uL (1.4-6.5) Lymphocytes # (Auto) 3.75 K/uL (1.2-3.4) Monocytes # (Auto) 0.56 K/uL (0.11-0.59) Eosinophils # (Auto) 0.43 K/uL (0-0.5) Basophils # (Auto) 0.04 K/uL (0-0.2) RDW Standard Deviation 45.0 fL (36.4-46.3) RDW Coefficient of Variation 15.0 % (11.5-14.5) Immature Granulocyte % (Auto) 0.8 % Immature Granulocyte # (Auto) 0.08 K/uL (0.00-0.02) Anion Gap 6.0 mmol/L (3-11) Est Creatinine Clear Calc Drug Dose 63.9 ml/min Estimated GFR () 63.3 Estimated GFR (Non- 54.6 BUN/Creatinine Ratio 8.1 (10-20) Calcium Level 8.7 mg/dl (8.5-10.1) Test 08/26/17 07:21 Bedside Glucose 106 mg/dl (70-99) Impression Suspected acute right hemispheric infarct with deficits localizing to the right parietal and frontal lobe. Multiple chronic cerebral infarcts in various territories as appreciated per my review of the CT of the head. Cardioembolism not excluded in this patient although there is not appear to be any evidence of atrial fibrillation. Plan This patient will need a full stroke workup including MRI of the brain with and without contrast and MR angiography of the head and neck. Please also order a transthoracic echocardiogram with bubble study. Agree with aspirin and Lipitor. Continue management of patient's hypertension. Reasonable short-term systolic blood pressure goal of 140-160 Hg mm. PT/OT I will make further recommendations as necessary depending on the results of the above testing Please contact me if I may be of further assistance.
[2017-08-26] MEDS: VENLAFAXINE HCL 37.5 MG TAB PO SCH ×2 (11:05→20:34)
[2017-08-26] MEDS: ENOXAPARIN 40 MG/0.4 ML SYR SC SCH (11:10)
[2017-08-26] MEDS: MoRPHine SULFATE CR 15 MG TAB (MS CONTIN) PO SCH (11:10)
[2017-08-26] MEDS ORDERED: CETIRIZINE HCL 10 MG TAB PO ONE (12:00)
[2017-08-26] MEDS ORDERED: LORAZEPAM 2 MG/ML 1 ML VIAL IV SCH (12:00)
[2017-08-26] MEDS: SODIUM CHLORIDE 0.9% 1000ML 1,000 ML IV SCH (13:11)
--- NOTE | 2017-08-26 15:22 | ECHOCARDIOGRAM REPORT ---
*NOTICE TO RECEIVING REPUBLICAN AGENCY This information is strictly Confidential and protected under [place] law. [place] law prohibits you from making any further disclosure of this information unless further disclosure is expressly permitted by the written consent of the person to whom it pertains or is authorized by law. A general authorization for the release of medical or other information is not sufficient for this purpose. Hospital accepts no responsibility if the information is made available to any other person, INCLUDING THE PATIENT. Interpretation Summary * Name: YAW MATTA Study Date: 08/26/2017 06:31 AM BP: 173/82 mmHg * Patient Location: .2T\S\E217\S\1 HR: 70 * : 1945 (M/d/yyy) Gender: Male Height: 72 in * Age: 72 yrs Ethnicity: CA Weight: 231 lb * Ordering Physician: Africa Sales * Referring Physician: Self, Referred * Performed By: Aliza Mercado RCS * * Reason For Study: VALVULAR HEART DISEASE * BSA: 2.3 m2 * -- Conclusions -- * There is mild concentric left ventricular hypertrophy. * Left ventricular systolic function is mildly reduced. * Grade I diastolic dysfunction, (abnormal relaxation pattern). * There are regional wall motion abnormalities as specified. * Injection of contrast documented no interatrial shunt. * There is a mechanical aortic valve. * There is mild mitral regurgitation. Procedure Details * A complete two-dimensional transthoracic echocardiogram was performed (2D, M-mode, Doppler and color flow Doppler). * A saline contrast injection was performed to assess for cardiac shunting. * The injection was performed through an intravenous line in the right arm. * The attending nurse who injected the saline contrast was AUDRA PEREZ, MINNIE. * A total of 10 cc of agitated saline was given. Left Ventricle * The left ventricle is normal in size. * There is mild concentric left ventricular hypertrophy. * Left ventricular systolic function is mildly reduced. * Ejection Fraction = 40-45%. * Grade I diastolic dysfunction, (abnormal relaxation pattern). * There are regional wall motion abnormalities as specified. * Basal posterior akinesis with moderate hypokinesis of the mid to distal posterior wall Right Ventricle * The right ventricle is normal in size and function. Atria * The left atrial size is normal. * Right atrial size is normal. * Injection of contrast documented no interatrial shunt. Mitral Valve * The mitral valve is grossly normal. * There is mild mitral regurgitation. Tricuspid Valve * The tricuspid valve is not well visualized, but is grossly normal. * There is trace tricuspid regurgitation. Aortic Valve * There is a mechanical aortic valve. * The gradient is normal for this prosthetic aortic valve. Pulmonic Valve * The pulmonic valve is not well visualized. Pericardium/Pleural * There is no pericardial effusion. MMode 2D Measurements and Calculations IVSd 1.6 cm IVSs 1.9 cm LVIDd 4.4 cm LVIDs 3.5 cm LVPWd 1.3 cm LVPWs 1.5 cm IVS/LVPW 1.2 FS 19.8 % EDV(Teich) 86.4 ml ESV(Teich) 51.1 ml EF(Teich) 40.8 % EDV(cubed) 83.6 ml ESV(cubed) 43.2 ml EF(cubed) 48.4 % % IVS thick 23.1 % % LVPW thick 12.3 % LV mass(C)d 248.9 grams LV mass(C)dI 109.9 grams/m\S\2 LV mass(C)s 239.9 grams LV mass(C)sI 105.9 grams/m\S\2 SV(Teich) 35.3 ml SI(Teich) 15.6 ml/m\S\2 SV(cubed) 40.4 ml SI(cubed) 17.9 ml/m\S\2 LA dimension 3.7 cm LVOT diam 2.1 cm LVOT area 3.4 cm\S\2 LVAd ap4 36.8 cm\S\2 LVLd ap4 8.9 cm EDV(MOD-sp4) 128.0 ml EDV(sp4-el) 129.3 ml LVAs ap4 27.4 cm\S\2 LVLs ap4 8.5 cm ESV(MOD-sp4) 72.5 ml ESV(sp4-el) 74.8 ml EF(MOD-sp4) 43.4 % EF(sp4-el) 42.2 % LVAd ap2 43.2 cm\S\2 LVLd ap2 9.2 cm EDV(MOD-sp2) 162.3 ml EDV(sp2-el) 171.9 ml LVAs ap2 28.2 cm\S\2 LVLs ap2 8.3 cm ESV(MOD-sp2) 76.3 ml ESV(sp2-el) 81.6 ml EF(MOD-sp2) 53.0 % EF(sp2-el) 52.5 % LVLd %diff 3.3 % EDV(MOD-bp) 148.0 ml LVLs %diff -2.90 % ESV(MOD-bp) 74.0 ml EF(MOD-bp) 50.0 % SV(MOD-sp4) 55.5 ml SI(MOD-sp4) 24.5 ml/m\S\2 SV(MOD-sp2) 86.0 ml SI(MOD-sp2) 38.0 ml/m\S\2 SV(MOD-bp) 74.1 ml SI(MOD-bp) 32.7 ml/m\S\2 SV(sp4-el) 54.6 ml SI(sp4-el) 24.1 ml/m\S\2 SV(sp2-el) 90.3 ml SI(sp2-el) 39.9 ml/m\S\2 Doppler Measurements and Calculations MV E max savannah 48.2 cm/sec MV A max savannah 96.4 cm/sec MV E/A 0.50 MV P1/2t max savannah 51.8 cm/sec MV P1/2t 119.2 msec MVA(P1/2t) 1.8 cm\S\2 MV dec slope 127.2 cm/sec\S\2 MV dec time 0.22 sec Ao V2 max 218.3 cm/sec Ao max PG 19.1 mmHg Ao max PG (full) 16.3 mmHg MILVIA(V,A) 1.3 cm\S\2 MILVIA(V,D) 1.3 cm\S\2 LV V1 max PG 2.8 mmHg LV V1 max 83.1 cm/sec
[2017-08-26] MEDS ORDERED: GADAVIST IV PRN (17:00)
--- NOTE | 2017-08-26 17:16 | DIAGNOSTIC IMAGING REPORT ---
BRAIN COMBO CLINICAL HISTORY: Stroke mental status change COMPARISON STUDY: CT 08/25/2017 TECHNIQUE: Utilizing a 1.5 Cristina magnet and dedicated coil, multiplanar, multiecho imaging of the brain was performed pre and postcontrast administration. IV administration of 8 mL of Gadavist contrast was uneventful. FINDINGS: Diffusion-weighted images show evidence for an acute/subacute right occipital infarct with a small additional right periventricular focus of acute ischemic change transaxial image 13. T2 images show evidence for generalized atrophy as well as considerable chronic small vessel change. Small old infarcts of the left cerebellar hemisphere and to a lesser extent right inferior cerebellar hemisphere. Considerable patient motion artifact on the examination. Postcontrast images demonstrate partial general postcontrast enhancement of the right occipital infarct suggesting in near subacute phenomenon. No additional areas of enhancement are appreciated. IMPRESSION: 1. Acute/subacute right occipital infarct. 2. Small acute infarct right paraventricular region. 3. Considerable atrophy and chronic small vessel change considered pre-existing The above report was generated using voice recognition software. It may contain grammatical, syntax or spelling errors. Electronically signed by: Kris Yee M.D. 08/26/2017 5:15 PM Dictated Date/Time: 08/26/2017 5:12 PM
--- NOTE | 2017-08-26 17:45 | Progress Note ---
Subjective Date of Service: Aug 26, 2017. Subjective Pt evaluation today including: conversation w/ patient, physical exam, chart review, lab review, review of studies, conversation w/ technical assistance consultant, review of inpatient medication list Sitting on chair, feeling mildly anxious, occasional cough, no other complaint Problem List Medical Problems: (1) Left arm weakness Status: Acute Review of Systems Constitutional: + weakness, + fatigue, No fever, No chills, No sweats, No weight loss, No problem reported Eyes: No worsening of vision, No eye pain, No redness, No discharge, No diplopia ENT: No hearing loss, No unusual epistaxis, No nasal symptoms, No sore throat, No tinnitus, No dental problems, No trouble swallowing Respiratory: No cough, No sputum, No wheezing, No shortness of breath, No dyspnea on exertion, No dyspnea at rest, No hemoptysis Cardiac: No chest pain, No orthopnea, No PND, No edema, No claudication, No palpitations Abdomen: No pain, No nausea, No vomiting, No diarrhea, No constipation Musculoskeletal: No joint pain, No muscle pain, No swelling, No calf pain Male : No dysuria, No urinary frequency, No incontinence, No nocturia more than once/night, No slowing stream, No hematuria Neurologic: + weakness, No memory loss, No paralysis, No numbness/tingling, No vertigo, No balance problems Psychiatric: No depression symptoms, No anhedonism, No anxiety, No insomnia, No substance abuse Heme: No abnormal bleeding/bruising, No clotting problems, No swollen lymph nodes, No night sweats Endo: No fatigue, No excessive thirst, No excessive urination Skin: No rash, No itch, No new/changing skin lesions, No color change, No bleeding Objective Vital Signs Date Time Temp Pulse Resp B/P (MAP) Pulse Ox O2 Delivery O2 Flow Rate FiO2 08/26/17 15:24 36.9 76 18 161/86 (111) 95 Room Air 08/26/17 11:27 37.1 89 16 160/98 (118) 97 Room Air 08/26/17 08:00 95 Room Air 08/26/17 07:06 36.6 69 16 173/82 (112) 99 Room Air 08/26/17 04:00 95 Room Air 08/26/17 02:54 36.8 65 17 163/89 (113) 95 Room Air 08/25/17 23:59 36.7 73 17 155/83 (107) 94 Room Air 08/25/17 23:14 69 18 164/89 93 08/25/17 22:30 66 20 156/93 94 Room Air 08/25/17 21:43 Room Air 08/25/17 20:08 66 08/25/17 20:04 70 16 160/95 94 Room Air 08/25/17 19:05 Room Air 08/25/17 18:49 37.3 78 14 148/92 92 Room Air Physical Exam General Appearance: WD/WN, no apparent distress, + thin, + pertinent finding ( Frail, some runny nose,) Eyes: normal inspection, PERRL, EOMI, sclerae normal ENT: normal ENT inspection, hearing grossly normal, pharynx normal Neck: supple, no adenopathy, thyroid normal, no JVD, no carotid bruits, trachea midline Respiratory/Chest: chest non-tender, lungs clear, normal breath sounds, no respiratory distress, no accessory muscle use Cardiovascular: regular rate, rhythm, no edema, no gallop, no JVD, no murmur Abdomen: normal bowel sounds, non tender, soft, no organomegaly, no pulsatile mass Extremities: normal range of motion, non-tender, normal inspection, no pedal edema, no calf tenderness, normal capillary refill, pelvis stable, + pertinent finding (Mild weakness for the left upper extremity, 4/5.) 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, no motor/sensory deficits, alert, normal mood/affect, oriented x 3 Skin: normal color, warm/dry, no rash Lymphatic: no adenopathy Laboratory Results Last 24 Hours Test 08/25/17 19:06 08/25/17 19:35 08/25/17 19:39 08/25/17 21:40 Bedside Glucose 104 mg/dl White Blood Count 9.69 K/uL Red Blood Count 5.01 M/uL Hemoglobin 13.7 g/dL Hematocrit 41.3 % Mean Corpuscular Volume 82.4 fL Mean Corpuscular Hemoglobin 27.3 pg Mean Corpuscular Hemoglobin Concent 33.2 g/dl Platelet Count 206 K/uL Mean Platelet Volume 9.3 fL Neutrophils (%) (Auto) 57.8 % Lymphocytes (%) (Auto) 32.7 % Monocytes (%) (Auto) 4.7 % Eosinophils (%) (Auto) 3.7 % Basophils (%) (Auto) 0.4 % Neutrophils # (Auto) 5.59 K/uL Lymphocytes # (Auto) 3.17 K/uL Monocytes # (Auto) 0.46 K/uL Eosinophils # (Auto) 0.36 K/uL Basophils # (Auto) 0.04 K/uL RDW Standard Deviation 45.2 fL RDW Coefficient of Variation 15.2 % Immature Granulocyte % (Auto) 0.7 % Immature Granulocyte # (Auto) 0.07 K/uL Prothrombin Time 10.7 SECONDS Prothromb Time International Ratio 1.0 Activated Partial Thromboplast Time 24.6 SECONDS Partial Thromboplastin Ratio 0.9 Sodium Level 137 mmol/L Potassium Level 4.3 mmol/L Chloride Level 104 mmol/L Carbon Dioxide Level 26 mmol/L Anion Gap 7.0 mmol/L Blood Urea Nitrogen 11 mg/dl Creatinine 1.24 mg/dl Est Creatinine Clear Calc Drug Dose 66.5 ml/min Estimated GFR () 66.4 Estimated GFR (Non- 57.3 BUN/Creatinine Ratio 8.8 Random Glucose 102 mg/dl Estimated Average Glucose 140 mg/dl Hemoglobin A1c 6.5 % Calcium Level 8.1 mg/dl Magnesium Level 2.0 mg/dl Total Bilirubin 0.4 mg/dl Direct Bilirubin 0.1 mg/dl Aspartate Amino Transf (AST/SGOT) 27 U/L Alanine Aminotransferase (ALT/SGPT) 32 U/L Alkaline Phosphatase 75 U/L Total Creatine Kinase 62 U/L Troponin I < 0.015 ng/ml Total Protein 6.9 gm/dl Albumin 3.4 gm/dl Lipase 37 U/L Thyroid Stimulating Hormone (TSH) 0.637 uIu/ml Hepatitis C Antibody Screen NEG Urine Color YELLOW Urine Appearance CLEAR Urine pH 6.5 Urine Specific [place] 1.006 Urine Protein NEG Urine Glucose (UA) NEG Urine Ketones NEG Urine Occult Blood NEG Urine Nitrite NEG Urine Bilirubin NEG Urine Urobilinogen NEG Urine Leukocyte Esterase NEG Test 08/26/17 05:37 08/26/17 07:21 08/26/17 16:23 White Blood Count 9.93 K/uL Red Blood Count 5.08 M/uL Hemoglobin 13.7 g/dL Hematocrit 42.1 % Mean Corpuscular Volume 82.9 fL Mean Corpuscular Hemoglobin 27.0 pg Mean Corpuscular Hemoglobin Concent 32.5 g/dl Platelet Count 213 K/uL Mean Platelet Volume 9.3 fL Neutrophils (%) (Auto) 51.1 % Lymphocytes (%) (Auto) 37.8 % Monocytes (%) (Auto) 5.6 % Eosinophils (%) (Auto) 4.3 % Basophils (%) (Auto) 0.4 % Neutrophils # (Auto) 5.07 K/uL Lymphocytes # (Auto) 3.75 K/uL Monocytes # (Auto) 0.56 K/uL Eosinophils # (Auto) 0.43 K/uL Basophils # (Auto) 0.04 K/uL RDW Standard Deviation 45.0 fL RDW Coefficient of Variation 15.0 % Immature Granulocyte % (Auto) 0.8 % Immature Granulocyte # (Auto) 0.08 K/uL Sodium Level 142 mmol/L Potassium Level 4.4 mmol/L Chloride Level 105 mmol/L Carbon Dioxide Level 31 mmol/L Anion Gap 6.0 mmol/L Blood Urea Nitrogen 10 mg/dl Creatinine 1.29 mg/dl Est Creatinine Clear Calc Drug Dose 63.9 ml/min Estimated GFR () 63.3 Estimated GFR (Non- 54.6 BUN/Creatinine Ratio 8.1 Random Glucose 91 mg/dl Calcium Level 8.7 mg/dl Bedside Glucose 106 mg/dl 120 mg/dl Assessment and Plan 72yo C male presenting with concern for CVA Possible CVA with hx of prior TIA, +weakness of LUE plus poor functional baseline secondary to dementia. CT head with age related changes, no acute intracranial process. Symptoms began appx 39 hours ago, patient is not a candidate for tPA MRI done: Acute/subacute right occipital infarct, Small acute infarct right paraventricular region, Considerable atrophy and chronic small vessel change considered pre-existing echo: * There is mild concentric left ventricular hypertrophy. * Left ventricular systolic function is mildly reduced. * Grade I diastolic dysfunction, (abnormal relaxation pattern). * There are regional wall motion abnormalities as specified. * Injection of contrast documented no interatrial shunt. * There is a mechanical aortic valve. * There is mild mitral regurgitation. Neuro input appreciated, will check MR angiography of the head and neck., transthoracic echocardiogram with bubble study. Continue aspirin and Lipitor., Nayeli hypertension, try to target systolic blood pressure goal of 140-160 Hg mm. We will discuss more with neuro Continue telemetry Swallowing dysfunction with failed a speech evaluation, will be n.p.o., NSS for now , and speech will reevaluation tomorrow well controlled DM HbA1c 6.7, patient recently diagnosed with DM, continue insulin sliding scale, continue home medications, CKD Stage III, Depression, BPH, Dementia:, Chronic pain, COPD, hx of s/p aortic valve replacement the above condition stable continue current medication, Ppx - Lovenox for DVT prophylaxis, full code Continued [facility] stay due to: multiple IV medications needed Discharge planning: home
[2017-08-26] MEDS: HydrALAZINE 10 MG TAB PO SCH ×2 (19:50→21:58)
[2017-08-26] MEDS: TRAZODONE HCL 50 MG TAB PO SCH (20:34)
[2017-08-26] MEDS: TAMSULOSIN HCL 0.4 MG CAP PO SCH (20:34)
[2017-08-26] MEDS: MoRPHine SULFATE CR 60 MG TAB (MS CONTIN) PO SCH (20:34)
[2017-08-26] MEDS: LORAZEPAM 0.5 MG TAB PO SCH (20:34)
[2017-08-26] MEDS ORDERED: NURSING VERBAL MED ORDER ONE (20:45)
[2017-08-27] MEDS ORDERED: NURSING VERBAL MED ORDER ONE ×2 (02:30→15:30)
[2017-08-27] MEDS ORDERED: LORAZEPAM 2 MG/ML 1 ML VIAL IV PRN (03:15)
[2017-08-27 04:19] VITALS: BP 187/99; PULSE 78; TEMP 36.9; O2SAT 96
[2017-08-27] MEDS ORDERED: GADAVIST IV PRN (05:45)
[2017-08-27] MEDS: HydrALAZINE 10 MG TAB PO SCH ×3 (05:53→20:31)
[2017-08-27] MEDS: LEVOTHYROXINE 150 MCG TAB PO SCH (05:53)
[2017-08-27] MEDS: INSULIN ASPART 100 UNITS/ML 3 ML PEN SC SCH ×5 (06:00→21:30)
[2017-08-27] MEDS: SODIUM CHLORIDE 0.9% 1000ML 1,000 ML IV SCH (06:12)
[2017-08-27 06:42] LABS: BASO % 0.5 %; BASO ABS # 0.05 K/uL (0-0.2); EOS % 3.2 %; EOS ABS # 0.32 K/uL (0-0.5); HEMATOCRIT 41.1 % (42-52); HEMOGLOBIN 13.4 g/dL (14.0-18.0); IG# 0.09 K/uL (0.00-0.02); LYMPH % 27.3 %; LYMPH ABS # 2.74 K/uL (1.2-3.4); MEAN CORPUSCULAR HEMOGLOBIN 26.7 pg (25-34); MEAN CORPUSCULAR HGB CONC 32.6 g/dl (32-36); MEAN PLATELET VOLUME 9.1 fL (7.4-10.4); MONO % 4.3 %; MONO ABS # 0.43 K/uL (0.11-0.59); NEUT % 63.8 %; PLATELET COUNT 222 K/uL (130-400); RED CELL DISTRIBUTION WIDTH SD 44.1 fL (36.4-46.3); WHITE BLOOD COUNT 10.03 K/uL (4.8-10.8)
--- NOTE | 2017-08-27 06:56 | DIAGNOSTIC IMAGING REPORT ---
MRA NECK COMBO HISTORY: Mental status change stroke r/o TECHNIQUE: Ycam-sp-yomuou and gadolinium-enhanced MRA of the neck was performed both before and after the intravenous administration of contrast. All measurements were calculated based on NASCET criteria. COMPARISON STUDY: None. FINDINGS: Near nondiagnostic study due to severe patient motion. Fast scans were attempted. The study show no major stenotic process of the carotid systems. There appears to be multifocal significant stenotic changes of the right vertebral. Left vertebral and basilar appear negative for a major stenotic process. No additional high-resolution detail is possible. IMPRESSION: 1. Near nondiagnostic study due to patient motion. 2. Carotid systems show mild atherosclerotic change with no major stenotic process. 3. Multifocal high-grade stenotic changes of the right vertebral with mild atelectatic change of the left vertebral and basilar systems. 4. High-resolution detail is not possible due to patient motion. The above report was generated using voice recognition software. It may contain grammatical, syntax or spelling errors. Electronically signed by: Kris Yee M.D. 08/27/2017 6:55 AM Dictated Date/Time: 08/27/2017 6:51 AM
[2017-08-27 07:12] LABS: CALCIUM 8.2 mg/dl (8.5-10.1); CREATININE 1.37 mg/dl (0.60-1.40); PHOSPHORUS 3.3 mg/dl (2.5-4.9); POTASSIUM 3.7 mmol/L (3.5-5.1)
--- NOTE | 2017-08-27 07:14 | DIAGNOSTIC IMAGING REPORT ---
MRA HEAD WITHOUT CONTRAST CLINICAL HISTORY: 72 years-old Male presenting with possible stroke, left arm symptoms including weakness, blurred vision, confusion worsening over one year, history of stroke. TECHNIQUE: MR angiography of the head was performed without the use of intravenous contrast using 3-D [id number]-ak-wiadhq technique. 3-D volumetric and/or maximum intensity projection (MIP) images were subsequently reconstructed for review. IV contrast: None. COMPARISON: Brain MR from 08/26/2017. FINDINGS: Anterior circulation: Intracranial portions of the internal carotid arteries patent to the level of the termini. Anterior and middle cerebral arteries patent. Anterior communicating artery patent. Posterior circulation: Left dominant vertebral artery. Right vertebral artery faintly visualized likely due to diminutive caliber. Due to the faint flow related enhancement of the right vertebral artery, it is difficult to confidently evaluate for the degree of patency. Right posterior inferior cerebellar artery poorly visualized. Left posterior inferior cerebellar artery patent. Basilar artery patent. Anterior inferior cerebellar arteries poorly visualized. Superior cerebellar and posterior cerebral arteries patent. Right posterior communicating artery patent. Left posterior communicating artery hypoplastic or aplastic. Brain: Limited evaluation of the brain parenchyma demonstrates effacement of sulci along the right parieto-occipital region with relative T1 hyperintensity, possibly laminar necrosis or petechial hemorrhage. IMPRESSION: 1. Faint visualization of the right vertebral artery. This may be due to diminutive caliber. Otherwise no significant stenosis, aneurysm, or focal vessel occlusion. Please see separately dictated MRA neck. 2. Findings again consistent with acute infarct in the right parieto-occipital region with either laminar necrosis or petechial hemorrhage. Electronically signed by: Yogi Sarmiento M.D. 08/27/2017 7:12 AM Dictated Date/Time: 08/27/2017 6:51 AM
[2017-08-27] MEDS ORDERED: HydrALAZINE HCL 20 MG/ML VIAL IV. PRN (07:30)
[2017-08-27 07:43] VITALS: BP 138/74; PULSE 64; TEMP 36.9; O2SAT 96
[2017-08-27] MEDS: MoRPHine SULFATE CR 15 MG TAB (MS CONTIN) PO SCH (09:00)
--- NOTE | 2017-08-27 09:08 | Neurology Progress Notes ---
Neurology Progress Note Date of Service Aug 27, 2017. Subjective Follow-up for stroke The patient is mildly lethargic this morning. He does not provide any specific complaints. He continues to exhibit left-sided weakness and neglect and remains relatively unaware of these deficits. He denies headache, fevers, chills, chest pain or palpitations. Objective Date Time Temp Pulse Resp B/P (MAP) Pulse Ox O2 Delivery O2 Flow Rate FiO2 08/27/17 07:43 36.9 64 20 138/74 (95) 96 08/27/17 04:19 36.9 78 14 187/99 (128) 96 Room Air 08/27/17 00:01 Room Air 08/26/17 22:55 36.9 79 17 187/81 (116) 96 Room Air 08/26/17 20:00 97 Room Air 08/26/17 19:26 36.8 70 22 175/94 (121) 97 Room Air 08/26/17 15:24 36.9 76 18 161/86 (111) 95 Room Air 08/26/17 11:27 37.1 89 16 160/98 (118) 97 Room Air Last 24 Hours Test 08/26/17 11:13 08/26/17 16:23 08/26/17 20:20 08/27/17 00:13 Bedside Glucose 172 mg/dl 120 mg/dl 108 mg/dl 95 mg/dl Test 08/27/17 06:14 08/27/17 06:20 Bedside Glucose 103 mg/dl White Blood Count 10.03 K/uL Red Blood Count 5.01 M/uL Hemoglobin 13.4 g/dL Hematocrit 41.1 % Mean Corpuscular Volume 82.0 fL Mean Corpuscular Hemoglobin 26.7 pg Mean Corpuscular Hemoglobin Concent 32.6 g/dl Platelet Count 222 K/uL Mean Platelet Volume 9.1 fL Neutrophils (%) (Auto) 63.8 % Lymphocytes (%) (Auto) 27.3 % Monocytes (%) (Auto) 4.3 % Eosinophils (%) (Auto) 3.2 % Basophils (%) (Auto) 0.5 % Neutrophils # (Auto) 6.40 K/uL Lymphocytes # (Auto) 2.74 K/uL Monocytes # (Auto) 0.43 K/uL Eosinophils # (Auto) 0.32 K/uL Basophils # (Auto) 0.05 K/uL RDW Standard Deviation 44.1 fL RDW Coefficient of Variation 15.0 % Immature Granulocyte % (Auto) 0.9 % Immature Granulocyte # (Auto) 0.09 K/uL Sodium Level 140 mmol/L Potassium Level 3.7 mmol/L Chloride Level 106 mmol/L Carbon Dioxide Level 27 mmol/L Anion Gap 7.0 mmol/L Blood Urea Nitrogen 11 mg/dl Creatinine 1.37 mg/dl Est Creatinine Clear Calc Drug Dose 58.0 ml/min Estimated GFR () 58.9 Estimated GFR (Non- 50.8 BUN/Creatinine Ratio 8.1 Random Glucose 89 mg/dl Calcium Level 8.2 mg/dl Phosphorus Level 3.3 mg/dl Magnesium Level 2.0 mg/dl Imaging: Additional imaging has been completed including MRI of the brain as well as MR angiography of the head and neck. I reviewed the images as well as the radiologist's interpretation of these tests. There is evidence of an acute to subacute infarct within the right occipital region as well as a small acute right periventricular infarct. The right vertebral artery is poorly visualized and appears to have multifocal atherosclerotic stenosis. Additional data: A transthoracic echocardiogram revealed an ejection fraction of 40-45 percent with regional wall motion abnormalities. Exam: The patient is lethargic. He is oriented to person and place only. Speech is fluent. He is able to name objects and repeat phrases. There is a left visual field deficit with confrontation testing. Pupils equal round reactive to light and accommodation. Eye movements normal. There is some flattening of the left nasolabial fold. The patient continues to exhibit a moderate degree of left- sided neglect. He extinguishes to double simultaneous stimulation on the left. He does not spontaneously move the left arm and leg very much. Current Inpatient Medications Medications (Trade) Dose Ordered Sig/Ibrahima Route Start Time Stop Time Status Last Admin Dose Admin Miscellaneous Information (Pharmacist Discharge Med Rec Consult) 1 ea UD PRN N/A 08/25/17 22:45 09/24/17 22:44 Enoxaparin Sodium (Lovenox Inj) 40 mg Q24H SC 08/26/17 08:00 09/25/17 07:59 08/26/17 11:10 40 MG Acetaminophen (Tylenol Tab) 650 mg Q4H PRN PO 08/25/17 22:45 09/24/17 22:44 Ondansetron HCl (Zofran Inj) 4 mg Q6H PRN IV 08/25/17 22:45 09/24/17 22:44 Amlodipine Besylate (Norvasc Tab) 10 mg DAILY PO 08/26/17 09:00 09/25/17 08:59 08/26/17 07:40 10 MG Calcitriol (Rocaltrol Cap) 0.25 mcg MoWeFr@0900 PO 08/27/17 09:00 09/26/17 08:59 Cholecalciferol (Vitamin D Tab) 2,000 inter.unit DAILY PO 08/26/17 09:00 09/25/17 08:59 08/26/17 07:39 2,000 INTER.UNIT Donepezil HCl (Aricept Tab) 5 mg DAILY PO 08/26/17 09:00 09/25/17 08:59 08/26/17 07:39 5 MG Famotidine (Pepcid Tab) 40 mg BID PO 08/26/17 09:00 09/25/17 08:59 08/26/17 07:40 40 MG Fluoxetine HCl (Prozac Cap) 20 mg DAILY PO 08/26/17 09:00 09/25/17 08:59 08/26/17 07:40 20 MG Folic Acid (Folvite Tab) 1 mg DAILY PO 08/26/17 09:00 09/25/17 08:59 08/26/17 07:39 1 MG Hydralazine HCl (Apresoline Tab) 30 mg Q8 PO 08/26/17 14:00 09/25/17 13:59 Levothyroxine Sodium (Synthroid Tab) 150 mcg DAILYBB PO 08/26/17 06:00 09/25/17 05:59 08/26/17 05:56 150 MCG Lorazepam (Ativan Tab) 0.5 mg HS PO 08/26/17 21:00 09/25/17 20:59 Methotrexate (Methotrexate Tab) 15 mg Sa@0900 PO 08/28/17 09:00 09/27/17 08:59 Morphine Sulfate (Ms Contin Tab) 60 mg HS PO 08/26/17 21:00 09/09/17 20:59 Multivitamins/ Minerals (Multivitamin W/ Minerals Tab) 1 tab DAILY PO 08/26/17 09:00 09/25/17 08:59 08/26/17 07:40 1 TAB Tamsulosin HCl (Flomax Cap) 0.8 mg HS PO 08/26/17 21:00 09/25/17 20:59 Trazodone HCl (Desyrel Tab) 150 mg HS PO 08/26/17 21:00 09/25/17 20:59 Venlafaxine HCl (effeXOR TAB) 75 mg QAM PO 08/26/17 10:00 09/25/17 09:59 08/26/17 11:05 75 MG Venlafaxine HCl (effeXOR TAB) 112.5 mg QPM PO 08/26/17 21:00 09/25/17 20:59 Artificial Tears (Artificial Tears) 1 drops Q12 OP 08/25/17 23:00 09/24/17 22:59 Miscellaneous Information (Order Awaiting Action) 1 ea QS N/A 08/26/17 16:00 09/25/17 15:59 Calcium/Vitamin D (Caltrate Plus Tab) 1 tab BID PO 08/26/17 09:00 09/25/17 08:59 08/26/17 07:38 1 TAB Miscellaneous Information (Order Awaiting Action) 1 ea QS N/A 08/26/17 16:00 09/25/17 15:59 Miscellaneous Information (Order Awaiting Action) 1 ea QS N/A 08/26/17 16:00 09/25/17 15:59 Miscellaneous Information (Order Awaiting Action) 1 ea QS N/A 08/26/17 16:00 09/25/17 15:59 Miscellaneous Information (Order Awaiting Action) 1 ea QS N/A 08/26/17 16:00 09/25/17 15:59 Morphine Sulfate (Oramorph Sr Tab) 30 mg QAM PO 08/26/17 09:30 09/09/17 09:29 08/26/17 11:10 30 MG Aspirin (Ecotrin Tab) 81 mg QAM PO 08/26/17 09:00 09/25/17 08:59 08/26/17 07:38 81 MG Atorvastatin Calcium (Lipitor Tab) 40 mg QAM PO 08/26/17 09:00 09/25/17 08:59 08/26/17 07:39 40 MG Glucose (Glucose 40% Gel) 15-30 GRAMS 15 GRAMS... UD PRN PO 08/26/17 00:15 09/25/17 00:14 Glucose (Glucose Chew Tab) 4-8 Tablets 4 Tabl... UD PRN PO 08/26/17 00:15 09/25/17 00:14 Dextrose (Dextrose 50% 50ML Syringe) 25-50ML 25ML FOR ... UD PRN IV 08/26/17 00:15 09/25/17 00:14 Glucagon (Glucagon Inj) 1 mg UD PRN SQ 08/26/17 00:15 09/25/17 00:14 Carbohydrates (Carbohydrates For Hypoglycemia) 15-30 GRAMS 15 grams if BSG 54-69... UD PRN PO 08/26/17 00:15 09/25/17 00:14 Cetirizine HCl (zyrTEC TAB) 10 mg QAM PO 08/27/17 09:00 08/31/17 08:59 Sodium Chloride 1,000 ml @ 75 mls/hr [id number] IV 08/26/17 12:30 09/25/17 12:29 08/27/17 06:12 75 MLS/HR Gadobutrol (Gadavist) 10 mmol UD PRN IV 08/26/17 17:00 08/30/17 16:59 Insulin Aspart (novoLOG ASPART) SLIDING SCALE If C... Q6 SC 08/27/17 00:00 09/26/17 00:00 Gadobutrol (Gadavist) 9.5 mmol UD PRN IV 08/27/17 05:45 08/31/17 05:44 Lisinopril (Zestril Tab) 10 mg QAM PO 08/27/17 09:00 09/25/17 09:59 Hydralazine HCl (HydrALAZINE INJ) 20 mg Q4 PRN IV. 08/27/17 07:30 09/26/17 07:29 Impression Acute to subacute right hemispheric infarcts as described above. Clinically, this patient has a left visual field deficit as well as left abebe neglect with an element of left abebe paresis. These deficits correlate with the observed infarcts. The observed right occipital infarct is actually a bit anterior and involves aspects of the right parietal lobe as well and is probably related to an occlusion of a posterior right middle cerebral artery territory branch rather than a right posterior cerebral artery occlusion. Stroke etiology undetermined. Cardioembolism may not be completely excluded in light of this patient's reduced ejection fraction and regional wall motion abnormalities. Plan Continue with aspirin and Lipitor as ordered. Consider obtaining an extended cardiac Holter monitor to further exclude atrial fibrillation. (His initial ECG did reveal some PACs.) Continue management of hypertension. PT/OT (rehabilitation can be difficult in individuals with sensory motor neglect ) Outpatient visual field assessment with Ophthalmology. This patient cannot drive a motor vehicle. No further immediate recommendations, please contact me if I may be of further assistance.
[2017-08-27] MEDS: ENOXAPARIN 40 MG/0.4 ML SYR SC SCH (09:50)
[2017-08-27] MEDS: AMLODIPINE BESYLATE 5 MG TAB PO SCH (09:51)
[2017-08-27] MEDS: VENLAFAXINE HCL 37.5 MG TAB PO SCH ×2 (09:52→20:30)
[2017-08-27] MEDS: ASPIRIN 81 MG ECTAB PO SCH (09:52)
[2017-08-27] MEDS: LISINOPRIL 5 MG TAB PO SCH (09:53)
[2017-08-27] MEDS: DONEPEZIL HCL 5 MG TAB PO SCH (09:53)
[2017-08-27] MEDS: ATORVASTATIN 40 MG TAB PO SCH (09:54)
[2017-08-27] MEDS: FLUOXETINE HCL 20 MG CAP PO SCH (09:55)
[2017-08-27] MEDS: CALCITRIOL 0.25 MCG CAP PO SCH (09:55)
[2017-08-27] MEDS: CHOLECALCIFEROL 1000 INTER.UNIT TAB PO SCH (09:55)
[2017-08-27] MEDS: CETIRIZINE HCL 10 MG TAB PO SCH (09:56)
[2017-08-27] MEDS: CEROVITE ADV FORMULA TAB PO SCH (09:56)
[2017-08-27] MEDS: FAMOTIDINE 20 MG TAB PO SCH ×2 (09:56→20:33)
[2017-08-27] MEDS: CALCIUM 600MG + VIT D 400 IU TAB PO SCH ×2 (09:57→20:33)
[2017-08-27 11:48] VITALS: BP 132/68; PULSE 72; TEMP 36.7; O2SAT 96
[2017-08-27] MEDS: ARTIFICIAL TEARS OP SOLN OP SCH ×2 (12:02→20:26)
--- NOTE | 2017-08-27 14:57 | Progress Note ---
Subjective Date of Service: Aug 27, 2017. Subjective Pt evaluation today including: conversation w/ patient, conversation w/ family , physical exam, chart review, lab review, review of studies, conversation w/ protection consultant, review of inpatient medication list Continue to have left-sided weakness, otherwise feeling okay, passed bedside swallowing assessment, has started taking p.o. Problem List Medical Problems: (1) Left arm weakness Status: Acute Review of Systems Constitutional: + weakness, No fever, No chills, No sweats, No weight loss, No fatigue, No problem reported Eyes: No worsening of vision, No eye pain, No redness, No discharge, No diplopia ENT: No hearing loss, No unusual epistaxis, No nasal symptoms, No sore throat, No tinnitus, No dental problems, No trouble swallowing Respiratory: No cough, No sputum, No wheezing, No shortness of breath, No dyspnea on exertion, No dyspnea at rest, No hemoptysis Cardiac: No chest pain, No orthopnea, No PND, No edema, No claudication, No palpitations Abdomen: No pain, No nausea, No vomiting, No diarrhea, No constipation Musculoskeletal: No joint pain, No muscle pain, No swelling, No calf pain Male : No dysuria, No urinary frequency, No incontinence, No nocturia more than once/night, No slowing stream, No hematuria Neurologic: + weakness, No memory loss, No paralysis, No numbness/tingling, No vertigo, No balance problems Psychiatric: No depression symptoms, No anhedonism, No anxiety, No insomnia, No substance abuse Heme: No abnormal bleeding/bruising, No clotting problems, No swollen lymph nodes, No night sweats Endo: No fatigue, No excessive thirst, No excessive urination Skin: No rash, No itch, No new/changing skin lesions, No color change, No bleeding Objective Vital Signs Date Time Temp Pulse Resp B/P (MAP) Pulse Ox O2 Delivery O2 Flow Rate FiO2 08/27/17 11:48 36.7 72 18 132/68 (89) 96 08/27/17 08:05 Room Air 08/27/17 07:43 36.9 64 20 138/74 (95) 96 08/27/17 04:19 36.9 78 14 187/99 (128) 96 Room Air 08/27/17 00:01 Room Air 08/26/17 22:55 36.9 79 17 187/81 (116) 96 Room Air 08/26/17 20:00 97 Room Air 08/26/17 19:26 36.8 70 22 175/94 (121) 97 Room Air 08/26/17 15:24 36.9 76 18 161/86 (111) 95 Room Air Physical Exam General Appearance: WD/WN, no apparent distress Eyes: normal inspection, PERRL, EOMI, sclerae normal ENT: normal ENT inspection, hearing grossly normal, pharynx normal Neck: supple, no adenopathy, thyroid normal, no JVD, no carotid bruits, trachea midline Respiratory/Chest: chest non-tender, normal breath sounds, no respiratory distress, no accessory muscle use, + decreased breath sounds Cardiovascular: regular rate, rhythm, no edema, no gallop, no JVD, no murmur Abdomen: normal bowel sounds, non tender, soft, no organomegaly, no pulsatile mass Extremities: normal range of motion, non-tender, normal inspection, no pedal edema, no calf tenderness, normal capillary refill, pelvis stable Neurologic/Psychiatric: career manager II-XII nml as tested, no motor/sensory deficits, alert, normal mood/affect, oriented x 3, + motor weakness (4+ in the right upper extremity, 5- in right lower extremity, ) Skin: normal color, warm/dry, no rash Lymphatic: no adenopathy Laboratory Results Last 24 Hours Test 08/26/17 16:23 08/26/17 20:20 08/27/17 00:13 08/27/17 06:14 Bedside Glucose 120 mg/dl 108 mg/dl 95 mg/dl 103 mg/dl Test 08/27/17 06:20 08/27/17 11:33 08/27/17 12:11 White Blood Count 10.03 K/uL Red Blood Count 5.01 M/uL Hemoglobin 13.4 g/dL Hematocrit 41.1 % Mean Corpuscular Volume 82.0 fL Mean Corpuscular Hemoglobin 26.7 pg Mean Corpuscular Hemoglobin Concent 32.6 g/dl Platelet Count 222 K/uL Mean Platelet Volume 9.1 fL Neutrophils (%) (Auto) 63.8 % Lymphocytes (%) (Auto) 27.3 % Monocytes (%) (Auto) 4.3 % Eosinophils (%) (Auto) 3.2 % Basophils (%) (Auto) 0.5 % Neutrophils # (Auto) 6.40 K/uL Lymphocytes # (Auto) 2.74 K/uL Monocytes # (Auto) 0.43 K/uL Eosinophils # (Auto) 0.32 K/uL Basophils # (Auto) 0.05 K/uL RDW Standard Deviation 44.1 fL RDW Coefficient of Variation 15.0 % Immature Granulocyte % (Auto) 0.9 % Immature Granulocyte # (Auto) 0.09 K/uL Sodium Level 140 mmol/L Potassium Level 3.7 mmol/L Chloride Level 106 mmol/L Carbon Dioxide Level 27 mmol/L Anion Gap 7.0 mmol/L Blood Urea Nitrogen 11 mg/dl Creatinine 1.37 mg/dl Est Creatinine Clear Calc Drug Dose 58.0 ml/min Estimated GFR () 58.9 Estimated GFR (Non- 50.8 BUN/Creatinine Ratio 8.1 Random Glucose 89 mg/dl Calcium Level 8.2 mg/dl Phosphorus Level 3.3 mg/dl Magnesium Level 2.0 mg/dl Triglycerides Level 219 mg/dl Cholesterol Level 152 mg/dl HDL Cholesterol 35 mg/dl LDL Cholesterol, Calculated 73 mg/dl VLDL Cholesterol, Calculated 44 mg/dl Cholesterol/HDL Ratio 4.3 Bedside Glucose 128 mg/dl 134 mg/dl Assessment and Plan 72yo C male admitted on August 26, 2017 because of CVA 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 and right parietal lobe infarct Neuro input appreciated Stroke etiology undetermined. Cardioembolism may not be completely excluded in light of this patient's reduced ejection fraction and regional wall motion abnormalities. Continue with aspirin and Lipitor Need to obtain an extended cardiac Holter monitor to further exclude atrial fibrillation recommendation of neurologist Continue management of hypertension. Patient also need to have outpatient visual field assessment with Ophthalmology. patient cannot drive a motor vehicle. MRI done: Acute/subacute right occipital infarct, Small acute infarct right paraventricular region, Considerable atrophy and chronic small vessel change considered pre-existing echo: * There is mild concentric left ventricular hypertrophy. * Left ventricular systolic function is mildly reduced. * Grade I diastolic dysfunction, (abnormal relaxation pattern). * There are regional wall motion abnormalities as specified. * Injection of contrast documented no interatrial shunt. * There is a mechanical aortic valve. * There is mild mitral regurgitation. Continue telemetry, diet per speech, DC IV fluid optimize cholesterol, blood pressure, diabetic control well controlled DM HbA1c 6.7, patient recently diagnosed with DM, continue insulin sliding scale, continue home medications, CKD Stage III, Depression, BPH, Dementia:, Chronic pain, COPD, hx of s/p aortic valve replacement the above condition stable continue current medication, Ppx - Lovenox for DVT prophylaxis, full code, discussed with patient and family Continued [facility] stay due to: home environment unsafe for pt Discharge planning: rehab hospital
[2017-08-27 15:00] VITALS: BP 158/93; PULSE 91; TEMP 36.4; O2SAT 94
[2017-08-27 19:20] VITALS: BP 177/93; PULSE 74; TEMP 37.1; O2SAT 95
[2017-08-27] MEDS: MoRPHine SULFATE CR 60 MG TAB (MS CONTIN) PO SCH (20:29)
[2017-08-27] MEDS: LORAZEPAM 0.5 MG TAB PO SCH (20:29)
[2017-08-27] MEDS: TRAZODONE HCL 50 MG TAB PO SCH (20:31)
[2017-08-27] MEDS: TAMSULOSIN HCL 0.4 MG CAP PO SCH (20:33)
[2017-08-27 23:03] VITALS: BP 151/89; PULSE 81; TEMP 36.9; O2SAT 98
[2017-08-28 03:15] VITALS: BP 131/81; PULSE 72; TEMP 36.8; O2SAT 95
[2017-08-28 06:08] LABS: BASO % 0.4 %; BASO ABS # 0.05 K/uL (0-0.2); EOS % 2.7 %; EOS ABS # 0.32 K/uL (0-0.5); HEMATOCRIT 40.1 % (42-52); HEMOGLOBIN 13.2 g/dL (14.0-18.0); IG# 0.16 K/uL (0.00-0.02); LYMPH % 34.3 %; LYMPH ABS # 4.11 K/uL (1.2-3.4); MEAN CORPUSCULAR HGB CONC 32.9 g/dl (32-36); MEAN PLATELET VOLUME 8.9 fL (7.4-10.4); MONO ABS # 0.84 K/uL (0.11-0.59); NEUT % 54.3 %; NEUT ABS # 6.51 K/uL (1.4-6.5); PLATELET COUNT 200 K/uL (130-400); RED CELL DISTRIBUTION WIDTH CV 15.1 % (11.5-14.5); RED CELL DISTRIBUTION WIDTH SD 44.3 fL (36.4-46.3); WHITE BLOOD COUNT 11.99 K/uL (4.8-10.8)
[2017-08-28] MEDS: LEVOTHYROXINE 150 MCG TAB PO SCH (06:09)
[2017-08-28] MEDS: HydrALAZINE 10 MG TAB PO SCH ×3 (06:09→21:12)
[2017-08-28 06:36] LABS: CALCIUM 8.5 mg/dl (8.5-10.1); CREATININE 1.52 mg/dl (0.60-1.40); POTASSIUM 3.4 mmol/L (3.5-5.1)
[2017-08-28 06:38] VITALS: BP 122/70; PULSE 64; TEMP 36.9; O2SAT 95
[2017-08-28] MEDS: ATORVASTATIN 40 MG TAB PO SCH (07:32)
[2017-08-28] MEDS: MoRPHine SULFATE CR 15 MG TAB (MS CONTIN) PO SCH (07:36)
[2017-08-28] MEDS: DONEPEZIL HCL 5 MG TAB PO SCH (07:40)
[2017-08-28] MEDS: CHOLECALCIFEROL 1000 INTER.UNIT TAB PO SCH (07:40)
[2017-08-28] MEDS: FLUOXETINE HCL 20 MG CAP PO SCH (07:41)
[2017-08-28] MEDS: AMLODIPINE BESYLATE 5 MG TAB PO SCH (07:41)
[2017-08-28] MEDS: CALCIUM 600MG + VIT D 400 IU TAB PO SCH ×2 (07:42→20:59)
[2017-08-28] MEDS: FAMOTIDINE 20 MG TAB PO SCH ×2 (07:42→21:00)
[2017-08-28] MEDS: ASPIRIN 81 MG ECTAB PO SCH (07:42)
[2017-08-28] MEDS: CETIRIZINE HCL 10 MG TAB PO SCH (07:46)
[2017-08-28] MEDS: VENLAFAXINE HCL 37.5 MG TAB PO SCH ×2 (07:46→21:02)
[2017-08-28] MEDS: LISINOPRIL 5 MG TAB PO SCH (07:46)
[2017-08-28] MEDS: CEROVITE ADV FORMULA TAB PO SCH (07:47)
[2017-08-28] MEDS: ARTIFICIAL TEARS OP SOLN OP SCH ×2 (07:47→21:00)
[2017-08-28] MEDS: INSULIN ASPART 100 UNITS/ML 3 ML PEN SC SCH ×4 (07:47→21:13)
[2017-08-28] MEDS: ENOXAPARIN 40 MG/0.4 ML SYR SC SCH (07:47)
[2017-08-28] MEDS ORDERED: METHOTREXATE 2.5 MG TAB PO SCH (09:00)
[2017-08-28 11:29] VITALS: BP 116/77; PULSE 72; TEMP 37; O2SAT 98
--- NOTE | 2017-08-28 14:14 | Progress Note ---
Subjective Date of Service: Aug 28, 2017. Subjective Pt evaluation today including: conversation w/ patient, physical exam, chart review, lab review, review of studies, conversation w/ domestic travel consultant, review of inpatient medication list Same, left side weakness seems better, has been out of bed to the chair with help, sitting up eating lunch, no complete Problem List Medical Problems: (1) Left arm weakness Status: Acute Review of Systems Constitutional: + weakness, + fatigue, No fever, No chills, No sweats, No weight loss, No problem reported Eyes: No worsening of vision, No eye pain, No redness, No discharge, No diplopia ENT: No hearing loss, No unusual epistaxis, No nasal symptoms, No sore throat, No tinnitus, No dental problems, No trouble swallowing Respiratory: No cough, No sputum, No wheezing, No shortness of breath, No dyspnea on exertion, No dyspnea at rest, No hemoptysis Cardiac: No chest pain, No orthopnea, No PND, No edema, No claudication, No palpitations Abdomen: No pain, No nausea, No vomiting, No diarrhea, No constipation Musculoskeletal: No joint pain, No muscle pain, No swelling, No calf pain Male : No dysuria, No urinary frequency, No incontinence, No nocturia more than once/night, No slowing stream, No hematuria Neurologic: + weakness, No memory loss, No paralysis, No numbness/tingling, No vertigo, No balance problems Psychiatric: No depression symptoms, No anhedonism, No anxiety, No insomnia, No substance abuse Heme: No abnormal bleeding/bruising, No clotting problems, No swollen lymph nodes, No night sweats Endo: No fatigue, No excessive thirst, No excessive urination Skin: No rash, No itch, No new/changing skin lesions, No color change, No bleeding Objective Vital Signs Date Time Temp Pulse Resp B/P (MAP) Pulse Ox O2 Delivery O2 Flow Rate FiO2 08/28/17 11:29 37.0 72 18 116/77 (90) 98 08/28/17 08:00 Room Air 08/28/17 06:38 36.9 64 18 122/70 (87) 95 Room Air 08/28/17 03:15 36.8 72 19 131/81 (98) 95 Room Air 08/27/17 23:03 36.9 81 18 151/89 (109) 98 Room Air 08/27/17 20:00 Room Air 08/27/17 19:20 37.1 74 18 177/93 (121) 95 Room Air 08/27/17 15:00 36.4 91 18 158/93 (114) 94 Room Air Physical Exam General Appearance: WD/WN, no apparent distress, + thin Eyes: normal inspection, PERRL, EOMI, sclerae normal ENT: normal ENT inspection, hearing grossly normal, pharynx normal Neck: supple, no adenopathy, thyroid normal, no JVD, no carotid bruits, trachea midline Respiratory/Chest: chest non-tender, lungs clear, normal breath sounds, no respiratory distress, no accessory muscle use Cardiovascular: regular rate, rhythm, no edema, no gallop, no JVD, no murmur Abdomen: normal bowel sounds, non tender, soft, no organomegaly, no pulsatile mass Extremities: normal range of motion, non-tender, normal inspection, no pedal edema, no calf tenderness, normal capillary refill, pelvis stable Neurologic/Psychiatric: performance management consultant II-XII nml as tested, no motor/sensory deficits, alert, normal mood/affect, oriented x 3, + motor weakness (In the left possible 4+, left lower extremity 5-) Skin: normal color, warm/dry, no rash Lymphatic: no adenopathy Laboratory Results Last 24 Hours Test 08/27/17 16:20 08/27/17 21:22 08/28/17 05:53 08/28/17 07:23 Bedside Glucose 165 mg/dl 106 mg/dl 89 mg/dl White Blood Count 11.99 K/uL Red Blood Count 4.89 M/uL Hemoglobin 13.2 g/dL Hematocrit 40.1 % Mean Corpuscular Volume 82.0 fL Mean Corpuscular Hemoglobin 27.0 pg Mean Corpuscular Hemoglobin Concent 32.9 g/dl Platelet Count 200 K/uL Mean Platelet Volume 8.9 fL Neutrophils (%) (Auto) 54.3 % Lymphocytes (%) (Auto) 34.3 % Monocytes (%) (Auto) 7.0 % Eosinophils (%) (Auto) 2.7 % Basophils (%) (Auto) 0.4 % Neutrophils # (Auto) 6.51 K/uL Lymphocytes # (Auto) 4.11 K/uL Monocytes # (Auto) 0.84 K/uL Eosinophils # (Auto) 0.32 K/uL Basophils # (Auto) 0.05 K/uL RDW Standard Deviation 44.3 fL RDW Coefficient of Variation 15.1 % Immature Granulocyte % (Auto) 1.3 % Immature Granulocyte # (Auto) 0.16 K/uL Sodium Level 142 mmol/L Potassium Level 3.4 mmol/L Chloride Level 107 mmol/L Carbon Dioxide Level 28 mmol/L Anion Gap 7.0 mmol/L Blood Urea Nitrogen 13 mg/dl Creatinine 1.52 mg/dl Est Creatinine Clear Calc Drug Dose 51.7 ml/min Estimated GFR () 51.9 Estimated GFR (Non- 44.8 BUN/Creatinine Ratio 8.3 Random Glucose 81 mg/dl Calcium Level 8.5 mg/dl Test 08/28/17 11:14 Bedside Glucose 122 mg/dl Assessment and Plan 72yo C male admitted on August 26, 2017 because of CVA 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 and right parietal lobe infarct With left-sided weakness Neuro input appreciated Stroke etiology undetermined. Cardioembolism may not be completely excluded Continue with aspirin and Lipitor Need to obtain an extended cardiac Holter monitor to further exclude atrial fibrillation per recommendation of neurologist, need to follow-up with PCP and order outpatient Holter monitor Continue management of hypertension. Blood pressure is significantly improved, also need to have outpatient visual field assessment with Ophthalmology. He cannot drive a motor vehicle recommend from neurology MRI done: Acute/subacute right occipital infarct, Small acute infarct right paraventricular region, Considerable atrophy and chronic small vessel change considered pre-existing echo: * There is mild concentric left ventricular hypertrophy. * Left ventricular systolic function is mildly reduced. * Grade I diastolic dysfunction, (abnormal relaxation pattern). * There are regional wall motion abnormalities as specified. * Injection of contrast documented no interatrial shunt. * There is a mechanical aortic valve. * There is mild mitral regurgitation. MedSurg, diet per speech, Continue optimize cholesterol, blood pressure, diabetic control well controlled DM HbA1c 6.7, patient recently diagnosed with DM, continue insulin sliding scale, continue home medications, CKD Stage III rating 1.52 from 1.37 yesterday depression, BPH, Dementia:, Chronic pain, COPD, hx of s/p aortic valve replacement the above condition stable continue current medication, Ppx - Lovenox for DVT prophylaxis, full code, discussed with patient and family MedSurg , and hospice social worker for discharge plan, possible discharge to the [facility] Continued [facility] stay due to: home environment unsafe for pt Discharge planning: senior care facility
[2017-08-28 15:32] VITALS: BP 116/77; PULSE 72; TEMP 37; O2SAT 98
[2017-08-28 16:43] VITALS: Ht 182.9 cm; Wt 94.9 kg
[2017-08-28] MEDS: BOOST GLUCOSE CONTROL VANILLA PO SCH (17:36)
[2017-08-28] MEDS: TRAZODONE HCL 50 MG TAB PO SCH (21:01)
[2017-08-28] MEDS: TAMSULOSIN HCL 0.4 MG CAP PO SCH (21:02)
[2017-08-28] MEDS: MoRPHine SULFATE CR 60 MG TAB (MS CONTIN) PO SCH (21:10)
[2017-08-28] MEDS: LORAZEPAM 0.5 MG TAB PO SCH (21:10)
[2017-08-28 23:32] VITALS: BP 110/69; PULSE 66; TEMP 36.8; O2SAT 93
[2017-08-29 06:09] VITALS: BP 115/78; PULSE 64
[2017-08-29] MEDS: LEVOTHYROXINE 150 MCG TAB PO SCH (06:11)
[2017-08-29] MEDS: HydrALAZINE 10 MG TAB PO SCH ×3 (06:11→22:19)
[2017-08-29 07:21] VITALS: BP 106/71; PULSE 62; TEMP 36.7; O2SAT 91
--- NOTE | 2017-08-29 07:59 | Neurology Progress Notes ---
Neurology Progress Note Date of Service Aug 29, 2017. Subjective Patient has no complaint of pain or headache. He is fairly alert and follows one-step commands. He does get somewhat confused easily but he is pleasant and cooperative. Nursing reports no additional issues or problems. MRI of the brain showed a right parieto-occipital stroke, likely posterior branches of the middle cerebral artery as opposed to the right posterior cerebral artery. I reviewed these films. MR angiography of the head and neck were remarkable for a small/stenotic right vertebral artery. Echocardiogram revealed some regional wall abnormalities and ejection fraction of 40-45 percent. Objective Date Time Temp Pulse Resp B/P (MAP) Pulse Ox O2 Delivery O2 Flow Rate FiO2 08/29/17 07:21 36.7 62 18 106/71 (83) 91 Room Air 08/29/17 06:09 64 115/78 (90) 08/29/17 00:00 Room Air 08/28/17 23:32 36.8 66 20 110/69 (83) 93 Room Air 08/28/17 15:32 37.0 72 18 98 08/28/17 11:29 37.0 72 18 116/77 (90) 98 08/28/17 08:00 Room Air Last 24 Hours Test 08/28/17 11:14 08/28/17 16:16 08/28/17 20:39 08/29/17 07:30 Bedside Glucose 122 mg/dl 108 mg/dl 143 mg/dl 100 mg/dl Test 08/29/17 07:44 Imaging: BRAIN COMBO CLINICAL HISTORY: Stroke mental status change COMPARISON STUDY: CT 08/25/2017 TECHNIQUE: Utilizing a 1.5 Cristina magnet and dedicated coil, multiplanar, multiecho imaging of the brain was performed pre and postcontrast administration. IV administration of 8 mL of Gadavist contrast was uneventful. FINDINGS: Diffusion-weighted images show evidence for an acute/subacute right occipital infarct with a small additional right periventricular focus of acute ischemic change transaxial image 13. T2 images show evidence for generalized atrophy as well as considerable chronic small vessel change. Small old infarcts of the left cerebellar hemisphere and to a lesser extent right inferior cerebellar hemisphere. Considerable patient motion artifact on the examination. Postcontrast images demonstrate partial general postcontrast enhancement of the right occipital infarct suggesting in near subacute phenomenon. No additional areas of enhancement are appreciated. IMPRESSION: 1. Acute/subacute right occipital infarct. 2. Small acute infarct right paraventricular region. 3. Considerable atrophy and chronic small vessel change considered pre-existing The above report was generated using voice recognition software. It may contain grammatical, syntax or spelling errors. Electronically signed by: Kris Yee M.D. 08/26/2017 5:15 PM Exam: He seems awake and alert with sparse speech but no obvious aphasia or dysarthria. Extraocular eye muscles are intact. He cannot see off to the left and seems to have a homonymous hemianopsia. There is no obvious facial droop and tongue is midline. There are no tremors or abnormal involuntary movements. Strength is 5/5 on the right side and 4/5 on the left side. He has drift on the left. Current Inpatient Medications Medications (Trade) Dose Ordered Sig/Ibrahima Route Start Time Stop Time Status Last Admin Dose Admin Miscellaneous Information (Pharmacist Discharge Med Rec Consult) 1 ea UD PRN N/A 08/25/17 22:45 09/24/17 22:44 Enoxaparin Sodium (Lovenox Inj) 40 mg Q24H SC 08/26/17 08:00 09/25/17 07:59 08/28/17 07:47 40 MG Acetaminophen (Tylenol Tab) 650 mg Q4H PRN PO 08/25/17 22:45 09/24/17 22:44 Ondansetron HCl (Zofran Inj) 4 mg Q6H PRN IV 08/25/17 22:45 09/24/17 22:44 Amlodipine Besylate (Norvasc Tab) 10 mg DAILY PO 08/26/17 09:00 09/25/17 08:59 08/28/17 07:41 10 MG Calcitriol (Rocaltrol Cap) 0.25 mcg MoWeFr@0900 PO 08/27/17 09:00 09/26/17 08:59 08/27/17 09:55 0.25 MCG Cholecalciferol (Vitamin D Tab) 2,000 inter.unit DAILY PO 08/26/17 09:00 09/25/17 08:59 08/28/17 07:40 2,000 INTER.UNIT Donepezil HCl (Aricept Tab) 5 mg DAILY PO 08/26/17 09:00 09/25/17 08:59 08/28/17 07:40 5 MG Famotidine (Pepcid Tab) 40 mg BID PO 08/26/17 09:00 09/25/17 08:59 08/28/17 21:00 40 MG Fluoxetine HCl (Prozac Cap) 20 mg DAILY PO 08/26/17 09:00 09/25/17 08:59 08/28/17 07:41 20 MG Folic Acid (Folvite Tab) 1 mg DAILY PO 08/26/17 09:00 09/25/17 08:59 08/28/17 07:41 1 MG Hydralazine HCl (Apresoline Tab) 30 mg Q8 PO 08/26/17 14:00 09/25/17 13:59 08/29/17 06:11 30 MG Levothyroxine Sodium (Synthroid Tab) 150 mcg DAILYBB PO 08/26/17 06:00 09/25/17 05:59 08/29/17 06:11 150 MCG Lorazepam (Ativan Tab) 0.5 mg HS PO 08/26/17 21:00 09/25/17 20:59 08/28/17 21:10 0.5 MG Methotrexate (Methotrexate Tab) 15 mg Sa@0900 PO 08/28/17 09:00 09/27/17 08:59 08/28/17 07:43 15 MG Morphine Sulfate (Ms Contin Tab) 60 mg HS PO 08/26/17 21:00 09/09/17 20:59 08/28/17 21:10 60 MG Multivitamins/ Minerals (Multivitamin W/ Minerals Tab) 1 tab DAILY PO 08/26/17 09:00 09/25/17 08:59 08/28/17 07:47 1 TAB Tamsulosin HCl (Flomax Cap) 0.8 mg HS PO 08/26/17 21:00 09/25/17 20:59 08/28/17 21:02 0.8 MG Trazodone HCl (Desyrel Tab) 150 mg HS PO 08/26/17 21:00 09/25/17 20:59 08/28/17 21:01 150 MG Venlafaxine HCl (effeXOR TAB) 75 mg QAM PO 08/26/17 10:00 09/25/17 09:59 08/28/17 07:46 75 MG Venlafaxine HCl (effeXOR TAB) 112.5 mg QPM PO 08/26/17 21:00 09/25/17 20:59 08/28/17 21:02 112.5 MG Artificial Tears (Artificial Tears) 1 drops Q12 OP 08/25/17 23:00 09/24/17 22:59 08/28/17 21:00 1 DROPS Miscellaneous Information (Order Awaiting Action) 1 ea QS N/A 08/26/17 16:00 09/25/17 15:59 Calcium/Vitamin D (Caltrate Plus Tab) 1 tab BID PO 08/26/17 09:00 09/25/17 08:59 08/28/17 20:59 1 TAB Miscellaneous Information (Order Awaiting Action) 1 ea QS N/A 08/26/17 16:00 09/25/17 15:59 Miscellaneous Information (Order Awaiting Action) 1 ea QS N/A 08/26/17 16:00 09/25/17 15:59 Miscellaneous Information (Order Awaiting Action) 1 ea QS N/A 08/26/17 16:00 09/25/17 15:59 Miscellaneous Information (Order Awaiting Action) 1 ea QS N/A 08/26/17 16:00 09/25/17 15:59 Morphine Sulfate (Oramorph Sr Tab) 30 mg QAM PO 08/26/17 09:30 09/09/17 09:29 08/28/17 07:36 30 MG Aspirin (Ecotrin Tab) 81 mg QAM PO 08/26/17 09:00 09/25/17 08:59 08/28/17 07:42 81 MG Atorvastatin Calcium (Lipitor Tab) 40 mg QAM PO 08/26/17 09:00 09/25/17 08:59 08/28/17 07:32 40 MG Glucose (Glucose 40% Gel) 15-30 GRAMS 15 GRAMS... UD PRN PO 08/26/17 00:15 09/25/17 00:14 Glucose (Glucose Chew Tab) 4-8 Tablets 4 Tabl... UD PRN PO 08/26/17 00:15 09/25/17 00:14 Dextrose (Dextrose 50% 50ML Syringe) 25-50ML 25ML FOR ... UD PRN IV 08/26/17 00:15 09/25/17 00:14 Glucagon (Glucagon Inj) 1 mg UD PRN SQ 08/26/17 00:15 09/25/17 00:14 Carbohydrates (Carbohydrates For Hypoglycemia) 15-30 GRAMS 15 grams if BSG 54-69... UD PRN PO 08/26/17 00:15 09/25/17 00:14 Cetirizine HCl (zyrTEC TAB) 10 mg QAM PO 08/27/17 09:00 08/31/17 08:59 08/28/17 07:46 10 MG Gadobutrol (Gadavist) 10 mmol UD PRN IV 08/26/17 17:00 08/30/17 16:59 Gadobutrol (Gadavist) 9.5 mmol UD PRN IV 08/27/17 05:45 08/31/17 05:44 Lisinopril (Zestril Tab) 10 mg QAM PO 08/27/17 09:00 09/25/17 09:59 08/28/17 07:46 10 MG Hydralazine HCl (HydrALAZINE INJ) 20 mg Q4 PRN IV. 08/27/17 07:30 09/26/17 07:29 Insulin Aspart (novoLOG ASPART) SLIDING SCALE If C... ACHS SC 08/27/17 16:15 09/26/17 16:14 08/28/17 21:13 1 UNITS Enteral Nutritional Formula (Boost Glucose Control) 1 can QDD PO 08/28/17 17:00 09/27/17 16:59 08/28/17 17:36 1 CAN Impression 1. Acute right parieto-occipital stroke, likely onset 08/24/2017. Clinically,he has a left homonymous hemianopsia and left abebe paresis, which is been stable. The infarct is likely related to an occlusion of a posterior right middle cerebral artery territory posterior branches rather than a right posterior cerebral artery occlusion. Although this is likely ischemic, cardioembolism cannot be completely excluded in lieu of the reduced ejection fraction and regional wall motion abnormalities seen on echocardiogram. 2. 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 History of depression, stable Plan 1. Continue 81 milligram aspirin 2. Consider high-dose statin, if no other contraindications. 3. Since the patient is on a fairly big dose of venlafaxine, I would be cautious with fluoxetine, as in theory, the 2 together might result in serotonin syndrome. Consider tapering fluoxetine. 4. PT/OT/speech 5. As an outpatient, we could get visual field assessment with Ophthalmology. I have no further neurologic testing or treatment recommendations at this time, therefore, please contact me if I can be of further assistance on this case
[2017-08-29] MEDS: LISINOPRIL 5 MG TAB PO SCH (08:00)
[2017-08-29 08:46] LABS: CALCIUM 9.2 mg/dl (8.5-10.1); CREATININE 2.62 mg/dl (0.60-1.40); POTASSIUM 3.7 mmol/L (3.5-5.1)
[2017-08-29] MEDS: DONEPEZIL HCL 5 MG TAB PO SCH (09:12)
[2017-08-29] MEDS: CALCIUM 600MG + VIT D 400 IU TAB PO SCH ×2 (09:12→21:03)
[2017-08-29] MEDS: CHOLECALCIFEROL 1000 INTER.UNIT TAB PO SCH (09:12)
[2017-08-29] MEDS: VENLAFAXINE HCL 37.5 MG TAB PO SCH ×2 (09:13→21:03)
[2017-08-29] MEDS: FAMOTIDINE 20 MG TAB PO SCH ×2 (09:13→21:04)
[2017-08-29] MEDS: ASPIRIN 81 MG ECTAB PO SCH (09:13)
[2017-08-29] MEDS: AMLODIPINE BESYLATE 5 MG TAB PO SCH (09:14)
[2017-08-29] MEDS: ARTIFICIAL TEARS OP SOLN OP SCH ×2 (09:16→21:05)
[2017-08-29] MEDS: MoRPHine SULFATE CR 15 MG TAB (MS CONTIN) PO SCH (09:19)
[2017-08-29] MEDS: CEROVITE ADV FORMULA TAB PO SCH (09:20)
[2017-08-29] MEDS: ATORVASTATIN 40 MG TAB PO SCH (09:20)
[2017-08-29] MEDS: INSULIN ASPART 100 UNITS/ML 3 ML PEN SC SCH ×4 (09:22→21:25)
[2017-08-29] MEDS ORDERED: SODIUM CHLORIDE 0.9% 1000ML 1,000 ML IV SCH (09:30)
[2017-08-29] MEDS ORDERED: HydrALAZINE HCL 20 MG/ML VIAL IV. PRN (09:30)
--- NOTE | 2017-08-29 13:04 | Progress Note ---
Subjective Date of Service: Aug 29, 2017. Subjective Pt evaluation today including: conversation w/ patient, physical exam, chart review, lab review, review of studies, conversation w/ farm service consultant, review of inpatient medication list Doing okay, eating breakfast, left lower extremity and upper extremity still weak Problem List Medical Problems: (1) Left arm weakness Status: Acute Review of Systems Constitutional: + weakness, + fatigue, No fever, No chills, No sweats, No weight loss, No problem reported Eyes: No worsening of vision, No eye pain, No redness, No discharge, No diplopia ENT: No hearing loss, No unusual epistaxis, No nasal symptoms, No sore throat, No tinnitus, No dental problems, No trouble swallowing Respiratory: No cough, No sputum, No wheezing, No shortness of breath, No dyspnea on exertion, No dyspnea at rest, No hemoptysis Cardiac: No chest pain, No orthopnea, No PND, No edema, No claudication, No palpitations Abdomen: No pain, No nausea, No vomiting, No diarrhea, No constipation Musculoskeletal: No joint pain, No muscle pain, No swelling, No calf pain Male : No dysuria, No urinary frequency, No incontinence, No nocturia more than once/night, No slowing stream, No hematuria Neurologic: + see HPI, + weakness, No memory loss, No paralysis, No numbness/ tingling, No vertigo, No balance problems Psychiatric: No depression symptoms, No anhedonism, No anxiety, No insomnia, No substance abuse Heme: No abnormal bleeding/bruising, No clotting problems, No swollen lymph nodes, No night sweats Endo: No fatigue, No excessive thirst, No excessive urination Skin: No rash, No itch, No new/changing skin lesions, No color change, No bleeding Objective Vital Signs Date Time Temp Pulse Resp B/P (MAP) Pulse Ox O2 Delivery O2 Flow Rate FiO2 08/29/17 08:00 Room Air 08/29/17 07:21 36.7 62 18 106/71 (83) 91 Room Air 08/29/17 06:09 64 115/78 (90) 08/29/17 00:00 Room Air 08/28/17 23:32 36.8 66 20 110/69 (83) 93 Room Air 08/28/17 15:32 37.0 72 18 98 Physical Exam General Appearance: WD/WN, no apparent distress Eyes: normal inspection, PERRL, EOMI, sclerae normal ENT: normal ENT inspection, hearing grossly normal, pharynx normal Neck: supple, no adenopathy, thyroid normal, no JVD, no carotid bruits, trachea midline Respiratory/Chest: chest non-tender, normal breath sounds, no respiratory distress, no accessory muscle use, + decreased breath sounds Cardiovascular: regular rate, rhythm, no edema, no gallop, no JVD, no murmur Abdomen: normal bowel sounds, non tender, soft, no organomegaly, no pulsatile mass Extremities: normal range of motion, non-tender, normal inspection, no pedal edema, no calf tenderness, normal capillary refill, pelvis stable Neurologic/Psychiatric: hims manager II-XII nml as tested, no motor/sensory deficits, alert, normal mood/affect, oriented x 3, + motor weakness (Left upper and lower extremity weakness, left upper extremity 4+, left lower extremity 5-) Skin: normal color, warm/dry, no rash Lymphatic: no adenopathy Laboratory Results Last 24 Hours Test 08/28/17 16:16 08/28/17 20:39 08/29/17 07:30 08/29/17 07:57 Bedside Glucose 108 mg/dl 143 mg/dl 100 mg/dl Sodium Level 140 mmol/L Potassium Level 3.7 mmol/L Chloride Level 104 mmol/L Carbon Dioxide Level 27 mmol/L Anion Gap 9.0 mmol/L Blood Urea Nitrogen 25 mg/dl Creatinine 2.62 mg/dl Est Creatinine Clear Calc Drug Dose 30.0 ml/min Estimated GFR () 26.9 Estimated GFR (Non- 23.2 BUN/Creatinine Ratio 9.6 Random Glucose 96 mg/dl Calcium Level 9.2 mg/dl Magnesium Level 2.1 mg/dl Chemistry Specimen Hemolysis Test 08/29/17 11:20 Bedside Glucose 102 mg/dl Assessment and Plan 72yo C male admitted on August 26, 2017 because of CVA 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 Continue 81 milligram aspirin, high-dose statin, need visual field assessment with Ophthalmology. Cardioembolism may not be completely excluded Need to obtain an extended cardiac Holter monitor to further exclude atrial fibrillation per recommendation of neurologist, need to follow-up with PCP and order outpatient Holter monitor Continue management of hypertension. Blood pressure is significantly improved, He cannot drive a motor vehicle recommend from neurology MRI done: Acute/subacute right occipital infarct, Small acute infarct right paraventricular region, Considerable atrophy and chronic small vessel change considered pre-existing echo: * There is mild concentric left ventricular hypertrophy. * Left ventricular systolic function is mildly reduced. * Grade I diastolic dysfunction, (abnormal relaxation pattern). * There are regional wall motion abnormalities as specified. * Injection of contrast documented no interatrial shunt. * There is a mechanical aortic valve. * There is mild mitral regurgitation. MedSurg, diet per speech, Acute on chronic CKD Stage III, today's creatinine is 2.6 from 1.5, etiology unknown, hold Lasix, give 1 L IV fluid, hold renal offensive medicines such as lisinopril, ordered hydralazine as needed depression, BPH, Dementia:, Chronic pain, COPD, hx of s/p aortic valve replacement the above condition stable continue current medication, Ppx - Lovenox for DVT prophylaxis, full code, discussed with patient and family MedSurg , and socially responsible investment adviser for discharge plan, possible discharge to the [facility], if kidney function is stable and improving may consider discharge tomorrow Continued [facility] stay due to: home environment unsafe for pt Discharge planning: long-term facility
[2017-08-29 13:51] VITALS: BP 138/82; PULSE 74
[2017-08-29 14:53] VITALS: BP 108/69; PULSE 76; TEMP 36.6; O2SAT 90
[2017-08-29] MEDS: BOOST GLUCOSE CONTROL VANILLA PO SCH (17:50)
[2017-08-29] MEDS: LORAZEPAM 0.5 MG TAB PO SCH (21:02)
[2017-08-29] MEDS: MoRPHine SULFATE CR 60 MG TAB (MS CONTIN) PO SCH (21:02)
[2017-08-29] MEDS: TAMSULOSIN HCL 0.4 MG CAP PO SCH (21:04)
[2017-08-29] MEDS: TRAZODONE HCL 50 MG TAB PO SCH (21:05)
[2017-08-29 21:07] VITALS: BP 139/91; PULSE 71
[2017-08-30] VITALS (8 sets, daily range): BP systolic 132–154; BP diastolic 71–85; PULSE 59–68; TEMP 36.6–36.8; O2SAT 90–97
[2017-08-30] MEDS: LEVOTHYROXINE 150 MCG TAB PO SCH (06:41)
[2017-08-30] MEDS: HydrALAZINE 10 MG TAB PO SCH ×3 (06:41→20:41)
[2017-08-30] MEDS: HEPARIN SOD 5000 UNIT/0.5 ML CARP SQ SCH ×3 (06:41→20:50)
[2017-08-30 06:52] LABS: CALCIUM 8.7 mg/dl (8.5-10.1); CREATININE 1.7 mg/dl (0.60-1.40)
[2017-08-30] MEDS: MoRPHine SULFATE CR 15 MG TAB (MS CONTIN) PO SCH (07:52)
[2017-08-30] MEDS: ATORVASTATIN 40 MG TAB PO SCH (07:52)
[2017-08-30] MEDS: CEROVITE ADV FORMULA TAB PO SCH (07:52)
[2017-08-30] MEDS: CHOLECALCIFEROL 1000 INTER.UNIT TAB PO SCH (07:53)
[2017-08-30] MEDS: FAMOTIDINE 20 MG TAB PO SCH ×2 (07:53→20:36)
[2017-08-30] MEDS: VENLAFAXINE HCL 37.5 MG TAB PO SCH ×2 (07:53→20:35)
[2017-08-30] MEDS: ASPIRIN 81 MG ECTAB PO SCH (07:53)
[2017-08-30] MEDS: AMLODIPINE BESYLATE 5 MG TAB PO SCH (07:53)
[2017-08-30] MEDS: CALCITRIOL 0.25 MCG CAP PO SCH (07:53)
[2017-08-30] MEDS: CALCIUM 600MG + VIT D 400 IU TAB PO SCH ×2 (07:53→20:35)
[2017-08-30] MEDS: ARTIFICIAL TEARS OP SOLN OP SCH ×2 (07:54→20:38)
[2017-08-30] MEDS: DONEPEZIL HCL 5 MG TAB PO SCH (07:54)
[2017-08-30] MEDS: INSULIN ASPART 100 UNITS/ML 3 ML PEN SC SCH ×4 (08:56→20:37)
[2017-08-30] MEDS ORDERED: ENOXAPARIN 30 MG/0.3 ML SYR SC SCH (10:00)
--- NOTE | 2017-08-30 16:05 | Progress Note ---
Subjective Date of Service: Aug 30, 2017. Subjective Pt evaluation today including: conversation w/ patient, physical exam, lab review, review of inpatient medication list Pain: denies pain PO Intake: adequate Voiding: no voiding problems patient feeling well, feeding himself during my visit only complaint is constipation reviewed labs, Cr down to 1.7 after IV fluids d/w case management, likely for d/c tomorrow to [place] rehab Problem List Medical Problems: (1) Left arm weakness Status: Acute Review of Systems Constitutional: + weakness Abdomen: + constipation All Other Systems: Reviewed and Negative Medications Current Inpatient Medications Medications (Trade) Dose Ordered Sig/Ibrahima Route Start Time Stop Time Status Last Admin Dose Admin Miscellaneous Information (Pharmacist Discharge Med Rec Consult) 1 ea UD PRN N/A 08/25/17 22:45 09/24/17 22:44 Acetaminophen (Tylenol Tab) 650 mg Q4H PRN PO 08/25/17 22:45 09/24/17 22:44 Ondansetron HCl (Zofran Inj) 4 mg Q6H PRN IV 08/25/17 22:45 09/24/17 22:44 Amlodipine Besylate (Norvasc Tab) 10 mg DAILY PO 08/26/17 09:00 09/25/17 08:59 08/30/17 07:53 10 MG Calcitriol (Rocaltrol Cap) 0.25 mcg MoWeFr@0900 PO 08/27/17 09:00 09/26/17 08:59 08/30/17 07:53 0.25 MCG Cholecalciferol (Vitamin D Tab) 2,000 inter.unit DAILY PO 08/26/17 09:00 09/25/17 08:59 08/30/17 07:53 2,000 INTER.UNIT Donepezil HCl (Aricept Tab) 5 mg DAILY PO 08/26/17 09:00 09/25/17 08:59 08/30/17 07:54 5 MG Famotidine (Pepcid Tab) 40 mg BID PO 08/26/17 09:00 09/25/17 08:59 08/30/17 07:53 40 MG Folic Acid (Folvite Tab) 1 mg DAILY PO 08/26/17 09:00 09/25/17 08:59 08/30/17 07:54 1 MG Hydralazine HCl (Apresoline Tab) 30 mg Q8 PO 08/26/17 14:00 09/25/17 13:59 08/30/17 13:57 30 MG Levothyroxine Sodium (Synthroid Tab) 150 mcg DAILYBB PO 08/26/17 06:00 09/25/17 05:59 08/30/17 06:41 150 MCG Lorazepam (Ativan Tab) 0.5 mg HS PO 08/26/17 21:00 09/25/17 20:59 08/29/17 21:02 0.5 MG Methotrexate (Methotrexate Tab) 15 mg Sa@0900 PO 08/28/17 09:00 09/27/17 08:59 Future Hold 08/28/17 07:43 15 MG Morphine Sulfate (Ms Contin Tab) 60 mg HS PO 08/26/17 21:00 09/09/17 20:59 08/29/17 21:02 60 MG Multivitamins/ Minerals (Multivitamin W/ Minerals Tab) 1 tab DAILY PO 08/26/17 09:00 09/25/17 08:59 08/30/17 07:52 1 TAB Tamsulosin HCl (Flomax Cap) 0.8 mg HS PO 08/26/17 21:00 09/25/17 20:59 08/29/17 21:04 0.8 MG Trazodone HCl (Desyrel Tab) 150 mg HS PO 08/26/17 21:00 09/25/17 20:59 08/29/17 21:05 150 MG Venlafaxine HCl (effeXOR TAB) 75 mg QAM PO 08/26/17 10:00 09/25/17 09:59 08/30/17 07:53 75 MG Venlafaxine HCl (effeXOR TAB) 112.5 mg QPM PO 08/26/17 21:00 09/25/17 20:59 08/29/17 21:03 112.5 MG Artificial Tears (Artificial Tears) 1 drops Q12 OP 08/25/17 23:00 09/24/17 22:59 08/30/17 07:54 1 DROPS Miscellaneous Information (Order Awaiting Action) 1 ea QS N/A 08/26/17 16:00 09/25/17 15:59 Calcium/Vitamin D (Caltrate Plus Tab) 1 tab BID PO 08/26/17 09:00 09/25/17 08:59 08/30/17 07:53 1 TAB Miscellaneous Information (Order Awaiting Action) 1 ea QS N/A 08/26/17 16:00 09/25/17 15:59 Miscellaneous Information (Order Awaiting Action) 1 ea QS N/A 08/26/17 16:00 09/25/17 15:59 Miscellaneous Information (Order Awaiting Action) 1 ea QS N/A 08/26/17 16:00 09/25/17 15:59 Miscellaneous Information (Order Awaiting Action) 1 ea QS N/A 08/26/17 16:00 09/25/17 15:59 Morphine Sulfate (Oramorph Sr Tab) 30 mg QAM PO 08/26/17 09:30 09/09/17 09:29 08/30/17 07:52 30 MG Aspirin (Ecotrin Tab) 81 mg QAM PO 08/26/17 09:00 09/25/17 08:59 08/30/17 07:53 81 MG Atorvastatin Calcium (Lipitor Tab) 40 mg QAM PO 08/26/17 09:00 09/25/17 08:59 08/30/17 07:52 40 MG Glucose (Glucose 40% Gel) 15-30 GRAMS 15 GRAMS... UD PRN PO 08/26/17 00:15 09/25/17 00:14 Glucose (Glucose Chew Tab) 4-8 Tablets 4 Tabl... UD PRN PO 08/26/17 00:15 09/25/17 00:14 Dextrose (Dextrose 50% 50ML Syringe) 25-50ML 25ML FOR ... UD PRN IV 08/26/17 00:15 09/25/17 00:14 Glucagon (Glucagon Inj) 1 mg UD PRN SQ 08/26/17 00:15 09/25/17 00:14 Carbohydrates (Carbohydrates For Hypoglycemia) 15-30 GRAMS 15 grams if BSG 54-69... UD PRN PO 08/26/17 00:15 09/25/17 00:14 Gadobutrol (Gadavist) 10 mmol UD PRN IV 08/26/17 17:00 08/30/17 16:59 Gadobutrol (Gadavist) 9.5 mmol UD PRN IV 08/27/17 05:45 08/31/17 05:44 Lisinopril (Zestril Tab) 10 mg QAM PO 08/27/17 09:00 09/25/17 09:59 Future Hold 08/28/17 07:46 10 MG Insulin Aspart (novoLOG ASPART) SLIDING SCALE If C... ACHS SC 08/27/17 16:15 09/26/17 16:14 08/30/17 08:56 1 UNITS Enteral Nutritional Formula (Boost Glucose Control) 1 can QDD PO 08/28/17 17:00 09/27/17 16:59 08/29/17 17:50 1 CAN Hydralazine HCl (HydrALAZINE INJ) 20 mg Q4 PRN IV. 08/29/17 09:30 09/28/17 09:29 Heparin Sodium (Porcine) (Heparin Sq 5000 Unit/0.5ml) 5,000 unit Q8 SQ 08/30/17 06:00 09/29/17 05:59 08/30/17 14:11 5,000 UNIT Objective Vital Signs Date Time Temp Pulse Resp B/P (MAP) Pulse Ox O2 Delivery O2 Flow Rate FiO2 08/30/17 15:37 36.6 63 16 146/80 (102) 95 08/30/17 13:55 62 132/76 (94) 08/30/17 08:00 94 Room Air 08/30/17 07:09 36.6 63 18 149/80 (103) 94 Room Air 08/30/17 00:04 36.7 68 20 154/85 (108) 97 Room Air 08/30/17 00:00 90 Room Air 08/29/17 21:07 71 139/91 (107) 08/29/17 18:14 Room Air Physical Exam General Appearance: WD/WN, no apparent distress Eyes: normal inspection, EOMI, sclerae normal ENT: normal ENT inspection, hearing grossly normal, pharynx normal Neck: supple, no adenopathy, no JVD, trachea midline Respiratory/Chest: chest non-tender, lungs clear, normal breath sounds, no respiratory distress, no accessory muscle use Cardiovascular: regular rate, rhythm, no edema, no gallop, no JVD, no murmur Abdomen: normal bowel sounds, non tender, soft, no organomegaly Extremities: normal range of motion, non-tender, normal inspection, no pedal edema, no calf tenderness, pelvis stable Neurologic/Psychiatric: box lining machine feeder II-XII nml as tested, alert, normal mood/affect, oriented x 3, + abnormal gait, + motor weakness (left side) Skin: normal color, warm/dry, no rash Laboratory Results Last 24 Hours Test 08/29/17 16:26 08/29/17 20:13 08/30/17 05:57 08/30/17 07:37 Bedside Glucose 117 mg/dl 147 mg/dl 93 mg/dl Sodium Level 142 mmol/L Potassium Level 4.0 mmol/L Chloride Level 107 mmol/L Carbon Dioxide Level 29 mmol/L Anion Gap 6.0 mmol/L Blood Urea Nitrogen 20 mg/dl Creatinine 1.70 mg/dl Est Creatinine Clear Calc Drug Dose 46.3 ml/min Estimated GFR () 45.4 Estimated GFR (Non- 39.1 BUN/Creatinine Ratio 11.8 Random Glucose 79 mg/dl Calcium Level 8.7 mg/dl Magnesium Level 2.0 mg/dl Test 08/30/17 11:33 Bedside Glucose 121 mg/dl Assessment and Plan 72yo C male admitted on August 26, 2017 because of CVA - 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 and right parietal lobe infarct With left-sided weakness left homonymous hemianopsia stable, actually improving slightly Continue 81mg aspirin, lipitor 40mg daily on follow up, needs dedicated eye exam with ophthomology, needs Holter monitor to r/o atrial fibrillation He cannot drive a motor vehicle recommend from neurology MRI done: Acute/subacute right occipital infarct, Small acute infarct right paraventricular region, Considerable atrophy and chronic small vessel change considered pre-existing echo: grade 1 diastolic dysfunction, mechanical aortic valve, EF slightly reduced at 40-45% - Acute on chronic CKD Stage III, Cr improved to 1.7 from 2.6 the day prior no further fluids needed, hold Lisinopril repeat labs in the AM - Constipation: give dose of Miralax now, start Senokot in the AM depression, BPH, Dementia:, Chronic pain, COPD, hx of s/p aortic valve replacement (anticoagulation?) the above condition stable continue current medication, Ppx - Lovenox for DVT prophylaxis, full code, discussed with patient and family MedSurg , and family welfare social work professor for discharge plan, possible discharge to the [facility], possibly tomorrow if they have a bed Continued [facility] stay due to: home environment unsafe for pt Discharge planning: detention facility
[2017-08-30] MEDS ORDERED: POLYETHYLENE (MIRALAX) 17 GM PACK PO ONE (16:45)
[2017-08-30] MEDS: BOOST GLUCOSE CONTROL VANILLA PO SCH (17:58)
[2017-08-30] MEDS: LORAZEPAM 0.5 MG TAB PO SCH (20:36)
[2017-08-30] MEDS: MoRPHine SULFATE CR 60 MG TAB (MS CONTIN) PO SCH (20:36)
[2017-08-30] MEDS: TAMSULOSIN HCL 0.4 MG CAP PO SCH (20:36)
[2017-08-30] MEDS: TRAZODONE HCL 50 MG TAB PO SCH (20:37)
[2017-08-31] VITALS: O2SAT 90
[2017-08-31 06:08] LABS: BASO % 0.2 %; BASO ABS # 0.02 K/uL (0-0.2); EOS % 4.1 %; EOS ABS # 0.39 K/uL (0-0.5); HEMATOCRIT 39.6 % (42-52); IG# 0.09 K/uL (0.00-0.02); LYMPH % 35.5 %; LYMPH ABS # 3.38 K/uL (1.2-3.4); MEAN CELL VOLUME 82.8 fL (80-100); MEAN CORPUSCULAR HEMOGLOBIN 27.2 pg (25-34); MEAN CORPUSCULAR HGB CONC 32.8 g/dl (32-36); MEAN PLATELET VOLUME 9.7 fL (7.4-10.4); MONO % 4.7 %; MONO ABS # 0.45 K/uL (0.11-0.59); NEUT % 54.6 %; NEUT ABS # 5.19 K/uL (1.4-6.5); PLATELET COUNT 184 K/uL (130-400); RED CELL DISTRIBUTION WIDTH CV 15.1 % (11.5-14.5); RED CELL DISTRIBUTION WIDTH SD 45.3 fL (36.4-46.3); WHITE BLOOD COUNT 9.52 K/uL (4.8-10.8)
[2017-08-31] MEDS: HydrALAZINE 10 MG TAB PO SCH ×2 (06:18→13:30)
[2017-08-31] MEDS: LEVOTHYROXINE 150 MCG TAB PO SCH (06:18)
[2017-08-31] MEDS: HEPARIN SOD 5000 UNIT/0.5 ML CARP SQ SCH ×2 (06:21→13:20)
[2017-08-31] MEDS: INSULIN ASPART 100 UNITS/ML 3 ML PEN SC SCH ×2 (06:30→12:57)
[2017-08-31 06:44] LABS: CALCIUM 8.9 mg/dl (8.5-10.1); CREATININE 1.45 mg/dl (0.60-1.40); POTASSIUM 3.8 mmol/L (3.5-5.1)
[2017-08-31] MEDS: MoRPHine SULFATE CR 15 MG TAB (MS CONTIN) PO SCH (07:27)
[2017-08-31] MEDS: AMLODIPINE BESYLATE 5 MG TAB PO SCH (07:28)
[2017-08-31] MEDS: CEROVITE ADV FORMULA TAB PO SCH (07:28)
[2017-08-31] MEDS: CALCIUM 600MG + VIT D 400 IU TAB PO SCH (07:28)
[2017-08-31] MEDS: ASPIRIN 81 MG ECTAB PO SCH (07:28)
[2017-08-31] MEDS: VENLAFAXINE HCL 37.5 MG TAB PO SCH (07:28)
[2017-08-31] MEDS: FAMOTIDINE 20 MG TAB PO SCH (07:28)
[2017-08-31] MEDS: ATORVASTATIN 40 MG TAB PO SCH (07:29)
[2017-08-31] MEDS: DONEPEZIL HCL 5 MG TAB PO SCH (07:29)
[2017-08-31] MEDS: CHOLECALCIFEROL 1000 INTER.UNIT TAB PO SCH (07:29)
[2017-08-31] MEDS: ARTIFICIAL TEARS OP SOLN OP SCH (07:29)
[2017-08-31 07:33] VITALS: BP 156/92; PULSE 77; TEMP 36.7; O2SAT 97
[2017-08-31 08:00] VITALS: O2SAT 97
[2017-08-31] MEDS ORDERED: SENNA 8.6 MG TAB PO SCH (08:00)
[2017-08-31] MEDS ORDERED: POLYETHYLENE (MIRALAX) 17 GM PACK PO PRN (08:00)
[2017-08-31] MEDS ORDERED: MRLP17X PO (12:59)
[2017-08-31] MEDS ORDERED: SENN-61 PO (12:59)
[2017-08-31] MEDS ORDERED: LISI-461 PO (12:59)
[2017-08-31] MEDS ORDERED: ASPI-461 PO (12:59)
[2017-08-31] MEDS ORDERED: LPT40 PO (12:59)
--- NOTE | 2017-08-31 13:13 | Discharge Instructions ---
Discharge Instructions Date of Service Aug 31, 2017. Admission Reason for Admission: Cva (Cerebral Vascular Accident) Discharge Discharge Diagnosis / Problem: right sided acute ischemic infarct with left sided weakness Discharge Goals Goal(s): Improve function, Improve disease control Activity Recommendations Activity Level: OOB In Chair, Assistance Required Therapies: Physical Therapy, Occupational Therapy Lifting Limitations: none Exercise/Sports Limitations: as tolerated Shower/Bathe: no limitations . Additional Information Patient informed of condition: Yes Advance Directives: Yes DNR: No Level of Care: Acute Rehab Communicable Disease: No Prognosis: Improving Oxygen at (LPM): none Melara Catheter: No Instructions / Follow-Up Instructions / Follow-Up 72yo C male admitted on August 26, 2017 because of CVA - 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 and right parietal lobe infarct With left-sided weakness left homonymous hemianopsia stable, strength improving, no neglect on my exam Continue 81mg aspirin, lipitor 40mg daily on follow up, needs dedicated eye exam with ophthomology, needs Holter monitor to r/o atrial fibrillation He cannot drive a motor vehicle recommend from neurology MRI done: Acute/subacute right occipital infarct, Small acute infarct right paraventricular region, Considerable atrophy and chronic small vessel change considered pre-existing Echo: negative bubble study, grade I diastolic dysfunction, porcine aortic valve, slightly reduced EF at 40-45% - Acute on chronic CKD Stage III, Cr improved to 1.4 from 2.6 on 08/29 no further fluids needed, can resume Lisinopril - Constipation: resolved, treat with dose of Miralax yesterday, start Senokot every AM since he is on chronic narcotics can use Miralax as needed depression, BPH, Dementia:, Chronic pain, COPD, hx of s/p porcine aortic valve replacement the above condition stable continue current medication, Ppx - Lovenox for DVT prophylaxis, full code, discussed with patient and family FOLLOW UP - physician at rehab - [facility] in one month, call for appointment, [phone] Activity Recommendations: See above Activation of Emergency Medical System: Call 911, immediately, if you experience any of the following: Warning Signs and Symptoms of Stroke: * Sudden numbness or weakness of the face, arm or leg, especially on one side of the body * Sudden confusion, trouble speaking or understanding * Sudden trouble seeing in one or both eyes * Sudden trouble walking, dizziness, loss of balance or coordination * Sudden severe headache with no cause Do not delay calling 911 if you experience any warning signs or symptoms of a stroke. Delay in seeking medical attention may affect what treatments can be given to you. Risk Factors for Stroke: You can reduce your chances of stroke by working with your medical provider to adopt a healthy lifestyle. Some specific ways to lower your chance of stroke are: * If you are a smoker, now is the time to stop smoking cigarettes * If you are diabetic, improve the control of your blood sugars * Avoid excessive amounts of alcohol * Control high blood pressure * Lose weight if you are overweight * Be sure to lead an active lifestyle * Eat a healthy diet low in salt, cholesterol and fat You should know about other risk factors for stroke that you are unable to control. These include: * Age 55 years or older * Male gender * Certain racial groups: , or / * Family History of Stroke, Mini stroke or Heart Attack * Sickle Cell Disease Follow Up: It is important for you to keep your follow up appointments with your medical provider. Current Hospital Diet Patient's current hospital diet: AHA Diet (Heart Healthy), Diabetes Type 2 Diet Discharge Diet Recommended Diet: AHA Diet (Heart Healthy), Diabetes Type 2 Diet Pending Studies Studies pending at discharge: no Physician Orders On Transfer Vital Signs: per protocol Additional Orders: BMP, CBC weekly, starting 09/06/17 POLST Discussion: Not Applicable Laboratory Results Hemoglobin A1c Test 08/25/17 19:35 Range/Units Estimated Average Glucose 140 mg/dl Hemoglobin A1c 6.5 H 4.5-5.6 % Lipid Panel Test 08/27/17 06:20 Range/Units Triglycerides Level 219 H 0-150 mg/dl Cholesterol Level 152 0-200 mg/dl HDL Cholesterol 35 mg/dl Cholesterol/HDL Ratio 4.3 LDL Cholesterol, Calculated 73 mg/dl Medical Emergencies . Who to Call and When: Medical Emergencies: If at any time you feel your situation is an emergency, please call 911 immediately. . Non-Emergent Contact Non-Emergency issues call your: Primary Care Provider Call Non-Emergent contact if: you have any medication questions . . "Provider Documentation" section prepared by Omid Baptiste. . Core Measure Problem Core Measures: Stroke Stroke Core Measures Reason no t-PA for Stroke: Treatment not indicated Reason no antithrom by day 2: Treatment provided - N/A Reason no antithrom at D/C: Treatment provided - N/A Reason no statin at D/C: Treatment provided - N/A Reason no anticoag w/a fib: Treatment not indicated [place] Drug Monitoring Program Search Results: no issues identified
[2017-08-31 13:18] VITALS: TEMP 36.7; O2SAT 97
[2017-08-31 13:29] VITALS: BP 116/76; PULSE 69
== END 2017-08-31 17:01 | DRG 65 ==
LOC: EDBD 18:40 → C.EDA 18:41 → C.2T 22:45 → ENRESERV 23:00 → C.4E 08-28 15:35
PROVIDERS: ADMIT Internal Medicine; ATTEND Internal Medicine
DX: I63.8 Other cerebral infarction (principal); G81.94 Hemiplegia, unspecified affecting left nondominant side; N17.9 Acute kidney failure, unspecified; R29.702 NIHSS score 2; H53.462 Homonymous bilateral field defects, left side; F03.90 Unspecified dementia, unspecified severity, without behavioral disturbance, psychotic disturbance, mood disturbance, and anxiety; E11.9 Type 2 diabetes mellitus without complications; I12.9 Hypertensive chronic kidney disease with stage 1 through stage 4 chronic kidney disease, or unspecified chronic kidney disease; N18.3 Chronic kidney disease, stage 3 (moderate); E03.9 Hypothyroidism, unspecified; K21.9 Gastro-esophageal reflux disease without esophagitis; L40.50 Arthropathic psoriasis, unspecified; J44.9 Chronic obstructive pulmonary disease, unspecified; F32.9 Major depressive disorder, single episode, unspecified; G89.29 Other chronic pain; N40.0 Benign prostatic hyperplasia without lower urinary tract symptoms; Z51.81 Encounter for therapeutic drug level monitoring; Z79.899 Other long term (current) drug therapy; Z79.84 Long term (current) use of oral hypoglycemic drugs; Z79.891 Long term (current) use of opiate analgesic; Z86.73 Personal history of transient ischemic attack (TIA), and cerebral infarction without residual deficits; Z95.2 Presence of prosthetic heart valve; Z83.3 Family history of diabetes mellitus